=== PATIENT | female | born 1980 | race Caucasian/White ===

== ENCOUNTER → 2018-01-07 11:32 | Outpatient (REF) | payer OTHER, MEDICAID, SELFPAY ==
[2018-01-07 21:09] LABS: Abs Immature Grans 0.03 k/cumm (0.0-0.09); Absolute Basophil Count 0.02 k/cumm (0.0-0.2); Absolute Eosinophil Count 0.17 k/cumm (0.0-0.7); Absolute Lymphocyte Count 2.76 k/cumm (1.2-3.4); Absolute Monocyte Count 0.66 k/cumm (0.11-0.7); Absolute Neutrophil Count 6.97 k/cumm (1.2-6.7); Basophils % 0.2; Eosinophils % 1.6; HCT 37.3 % (36.0-46.0); HGB 12.3 g/dL (12.0-15.5); Immature Grans % 0.3; Mean Corpuscular Hemoglobin 28.9 pg (27.0-33.0); Mean Corpuscular Volume 87.6 fL (80-95); Mean Platelet Volume 11.9 fL (8.0-11.0); Monocytes % 6.2; Neutrophils % 65.7; Platelet Count 189 x1000/uL (130-400); RBC 4.26 m/cumm (4.00-5.20); RBC Distribution Width 15.7 % (11.7-14.6); White Blood Cell Count 10.61 k/cumm (4.4-10.8)
[2018-01-07 21:16] LABS: ALT 27 U/L (12-78); AST 20 U/L (15-37); Albumin 3.5 g/dL (3.4-5.0); Alkaline Phosphatase 52 U/L (46-116); Anion Gap 8.6 mmol/L (3-11); BUN 8 mg/dL (7-18); Bilirubin, Total 0.2 mg/dL (0.2-1.0); CO2 29.4 mmol/L (21.0-32.0); CREATININE 0.96 mg/dL (0.55-1.02); Calcium 8.5 mg/dL (8.5-10.1); Chloride 103 mmol/L (98-107); Cholesterol 134 mg/dL (50-200); Glucose 85 mg/dL (70-100); HDL Cholesterol 29 mg/dL (40-60); LDL CHOLESTEROL 75 mg/dL (<100); Potassium 4.6 mmol/L (3.5-5.1); Sodium 141 mmol/L (136-145); TSH (W/Ref FT4) 1.49 uIU/mL (0.358-3.74); Triglyceride 243 mg/dL (30-150)
== END ==
LOC: NCHCN 11:32
PROVIDERS: PCP Family Medicine; Visit Provider Specialist/Technologist Athletic Trainer
DX: Z51.81 Encounter for therapeutic drug level monitoring (principal); Z79.899 Other long term (current) drug therapy; F31.9 Bipolar disorder, unspecified
CPT/HCPCS: 80053; 80061; 83721; 84443; 85025

== ENCOUNTER 2018-08-06 13:14 | Outpatient (REF) | payer OTHER, SELFPAY ==
[2018-08-06 22:28] LABS: ALT 23 U/L (12-78); AST 17 U/L (15-37); Albumin 3.7 g/dL (3.4-5.0); Alkaline Phosphatase 49 U/L (46-116); Anion Gap 9.4 mmol/L (3-11); BUN 10 mg/dL (7-18); Bilirubin, Total 0.3 mg/dL (0.2-1.0); C-Reactive Protein 1.13 mg/dL (0.0-0.3); CO2 27.6 mmol/L (21.0-32.0); CREATININE 0.95 mg/dL (0.55-1.02); Chloride 100 mmol/L (98-107); Glucose 109 mg/dL (70-100); Potassium 4.4 mmol/L (3.5-5.1); Sodium 137 mmol/L (136-145); Total Protein 7.2 g/dL (6.4-8.2)
[2018-08-06 22:57] LABS: ESR 30 MM/HR (0-20)
[2018-08-08 12:33] LABS: Myeloperoxidase Ab IgG <0.2 U; Proteinase 3 Ab (PR3) <0.2 U
[2018-08-10 09:42] LABS: Rheumatoid Factor <8 IU/mL (<12.5)
[2018-08-10 10:21] LABS: Cyclic Citrullinated Peptide <2.5 U/mL (<5.0)
[2018-08-10 11:07] LABS: Anaplasma phagocytophilum Negative (Negative); B. miyamotoi PCR Negative (Negative); Babesia divergens/MO-1 Negative (Negative); Babesia duncani Negative (Negative); Babesia microti Negative (Negative); Ehrlichia chaffeensis Negative (Negative); Ehrlichia ewingii/canis Negative (Negative); Ehrlichia muris eauclairensis Negative (Negative)
[2018-08-10 12:31] LABS: Lyme Ab w Rflx to Lyme Confirm Negative
[2018-08-10 14:36] LABS: ANA Interpretation Negative (NEGAT)
== END 2018-08-06 13:34 ==
LOC: NCHCN 13:14
PROVIDERS: PCP Family Medicine; Visit Provider Specialist/Technologist Athletic Trainer
DX: M25.50 Pain in unspecified joint (principal); R60.9 Edema, unspecified; Z02.89 Encounter for other administrative examinations
CPT/HCPCS: 80053; 85652; 86200; 83516; 83735; 86038; 86140; 86431; 86618; 87798

== ENCOUNTER 2018-10-01 08:17 | Emergency (ER) | payer OTHER, MEDICAID, SELFPAY ==
[2018-10-01 08:30] VITALS: BP 146/79; PULSE 92; RESP 18; TEMP 37.1; O2SAT 94
--- NOTE | 2018-10-01 08:45 | ED.GENADUL_ITS ---
Discharge Plan Disposition Patient Disposition: HOME Condition: Good Discharge Details Chief Complaint: RashLesion Clinical Impression: Tick bite of chest wall Primary Care Provider: Diane Ying V ED Provider: Neel Gary Home Meds and New Rx's Prescriptions: No Action furosemide 20 MG tablet 20 mg PO DAILY RF: 0 albuterol sulfate [ProAir HFA] 8.5 GM HFA aerosol inhaler 2 puff Inhalation BID RF: 0 paroxetine HCl [Paxil] 20 MG tablet 20 mg PO HS RF: 0 quetiapine 25 MG tablet 25 mg PO TID RF: 0 buprenorphine-naloxone [Suboxone] 1 EACH film 1 ea PO DAILY RF: 0 potassium chloride 10 MEQ capsule, extended release 10 meq PO DAILY RF: 0 calcium carbonate 600 MG tablet 600 mg PO DAILY RF: 0 omeprazole 40 MG capsule,delayed release(DR/EC) 40 mg PO DAILY AM Qty: 30 RF: 3 Discharge Instructions Instructions: Tick Bite (ED) Additional Instructions: Please follow-up with your primary care provider or return to emergency department for any new or significant worsening of symptoms, development of rash, or further concerns he may have. Referrals: Diane Ying MD [Primary Care Provider] - (As needed for reassessment) Discharge Data Discharge Date/Time-TO BE ENTERED AT DEPARTURE: 10/01/18 09:12 Medical Decision Making Patient presenting the emergency department for chief complaint of tick bite. Patient states that she feels that she may have gotten this from her cat that sleeps in her bed. She states that more than likely it is been there more than 2 days and that she attempted to call her primary care provider for examination but was unable to be seen so is presenting the emergency department. Patient is afebrile, denies any other rashes, denies any joint swelling or other symptoms. Patient does have what appears to be embedded deer tick into the right chest wall. There is a small surrounding ecchymosis otherwise no erythema margins other rash or other symptoms noted and benign exam otherwise. Tick was removed with splinter tweezers and appears to have no further visible remaining embedded pieces after removal. Given that this is a deer tick and it does have the appearance of being attached for a significant amount of time patient was given single dose of doxycycline 200 mg as prophylactic treatment for Lyme disease and discussion of further symptoms was given to patient along with follow-up instructions. After discussion of diagnosis and plan of care patient has no further needs, questions, or concerns and states clear understanding to return to the emergency department for any worsening symptoms. HPI General Mode of arrival: ambulatory . Date/Time Provider Initiated Documentation: 10/01/18 08:29 . Limitations to Documentation: no limitations . Information obtained by: patient and RN notes reviewed . History of Present Illness 38 year old F presents to the emergency department with the chief complaint of tick bite, described as mild, with intensity rated at 1. Quality is described as aching, Patient started experiencing this day(s) (2+) and it has been constant. Patient notes no other symptoms.. Patient did receive the following treatments prior to arrival, none Related Data Home Medications Medication Instructions Recorded Confirmed albuterol sulfate [ProAir HFA] 2 puff INHALATION BID 10/13/12 02/22/17 paroxetine HCl [Paxil] 20 mg PO HS 10/13/12 02/22/17 quetiapine 25 mg PO TID 01/15/13 02/22/17 buprenorphine-naloxone [Suboxone 1 ea PO DAILY 11/03/13 02/22/17 12 Mg-3 Mg Sl Film] furosemide 20 mg PO DAILY 01/30/16 02/22/17 calcium carbonate 600 mg PO DAILY 09/20/16 02/22/17 potassium chloride 10 meq PO DAILY 09/20/16 02/22/17 omeprazole 40 mg PO DAILY AM #30 capsule. 09/24/16 02/22/17 Previous Rx's Medication Instructions Recorded omeprazole 40 mg PO DAILY AM #30 capsule. 09/24/16 Allergies Allergy/AdvReac Type Severity Reaction Status Date / Time sertraline HCl [From Zoloft] AdvReac Severe Psychosis Unverified 10/02/18 10:16 fluticasone AdvReac Mild mouth Unverified 10/02/18 10:16 [From Advair Diskus] infection salmeterol AdvReac Mild mouth Unverified 10/02/18 10:16 [From Advair Diskus] infection sertraline [From Zoloft] AdvReac Suicidal Unverified 10/02/18 10:16 ideation General Stated Complaint: RashLesion MACRINA: 4 Review of Systems Constitutional Denies body ache(s), Denies chills and Denies fever(s) Cardiovascular Denies chest pain and Denies dyspnea Respiratory Denies dyspnea Gastrointestinal Denies abdominal pain, Denies nausea and Denies vomiting Musculoskeletal Denies joint swelling Integumentary/Breasts Reports as per HPI and Denies rash PFSH Medical History Asthma Bipolar disorder Depression Drug dependence GERD (gastroesophageal reflux disease) OCD (obsessive compulsive disorder) DELROY (obstructive sleep apnea) Surgical History section Cholecystectomy Diagnostic Laproscopy EGD - MAC (09/24/16) Shoulder Surgery Family History Mother Personal history of malignant neoplasm Father Diabetes Personal history of malignant neoplasm Social History Smoking/Tobacco Use Status: Current every day Alcohol Intake: never Drug use: Occasionally Substance use type: marijuana Do you feel safe at home: Yes Do you feel safe in your relationship?: Yes Exam Const General: cooperative, no acute distress and not ill appearing Orientation: alert, awake and oriented x3 Resp Effort & Inspection: normal respiratory effort, able to speak in complete sentences and no respiratory distress Skin General skin exam: other (Embedded tick right chest wall small ecchymosis surrounding) Rashes: no rashes Neuro General: alert, awake and oriented x3 Course Vital Signs Temperature 37.1 C 10/01/18 08:30 Pulse 92 H 10/01/18 08:30 Respiratory Rate 18 10/01/18 08:30 Blood Pressure 146/79 H 10/01/18 08:30 Pulse Oximetry 94 L 10/01/18 08:30 Temperature 37.1 C 10/01/18 08:30 Temperature Source Temporal Artery Scan 10/01/18 08:30 Pulse 92 H 10/01/18 08:30 Respiratory Rate 18 10/01/18 08:30 Respiratory Effort Non-Labored 10/01/18 08:35 Blood Pressure 146/79 H 10/01/18 08:30 Pulse Oximetry 94 L 10/01/18 08:30 Oxygen Delivery Method Room Air 10/01/18 08:30 Oxygen Flow Rate 0 10/01/18 08:30 Pain Level 1 10/01/18 08:30
[2018-10-01] MEDS: Doxycycline Hyclate 100 MG CAP 200 MG PO (08:49)
== END 2018-10-01 09:12 | disposition home or self-care (01) ==
PROVIDERS: Emergency Provider Nurse Practitioner Family; PCP Family Medicine
DX: S20.361A Insect bite (nonvenomous) of right front wall of thorax, initial encounter (principal); W57.XXXA Bitten or stung by nonvenomous insect and other nonvenomous arthropods, initial encounter
CPT/HCPCS: 99283

== ENCOUNTER 2018-12-07 02:29 | Outpatient (CLI) | payer OTHER, MEDICAID, SELFPAY ==
--- NOTE | 2018-12-07 14:30 | PFT_ITS ---
DATE OF SERVICE: December 07, 2018 REQUESTING PROVIDER: Amber Esparza NP INTERPRETATION OF STUDY: Spirometry shows mild obstructive airways disease. No bronchodilator testing was carried out. LUNG VOLUMES: Show no evidence of restriction. DIFFUSION CAPACITY: Normal. AIRWAYS RESISTANCE: Elevated. IMPRESSION: Mild obstructive airways disease. No bronchodilator testing was carried out. Airways resistance is elevated. Clinical correlation recommended. BRONCHOPROVOCATION CHALLENGE TEST DATE OF SERVICE: December 07, 2018 After spirometry showing mild obstructive airways disease, bronchoprovocation challenge with methacholine was carried out with good patient effort. At a methacholine concentration of 0.5 mg/mL, the patient had a 24% drop in FEV1. IMPRESSION: Strongly positive methacholine challenge test. Clinical correlation recommended. ADDENDUM: The patient has significant bronchodilator response at 14% improvement with bronchodilators. cc: Amber Esparza NP
[2018-12-07] MEDS: Inhaler, Assist Device 1 EACH MC (16:12)
[2018-12-07] MEDS: Methacholine 100 MG VIAL IH (16:12)
[2018-12-07] MEDS: Albuterol HFA 18 GM 200 PUFF INH IH (16:32)
== END 2018-12-07 02:49 ==
PROVIDERS: PCP Family Medicine; Visit Provider Nurse Practitioner Family
DX: J45.20 Mild intermittent asthma, uncomplicated (principal); R06.02 Shortness of breath; F17.200 Nicotine dependence, unspecified, uncomplicated
CPT/HCPCS: 94060; 94150; 94726; 94729; 95070; 94010; J7674

== ENCOUNTER 2019-12-02 21:44 | Emergency (ER) | payer OTHER, MEDICAID, SELFPAY ==
[2019-12-02 21:47] VITALS: BP 165/89; PULSE 105; RESP 16; TEMP 36.7; O2SAT 98
--- NOTE | 2019-12-02 21:47 | ED.GENADUL_ITS ---
Discharge Plan Disposition Patient Disposition: HOME Condition: Good Discharge Details Chief Complaint: EarProblem Clinical Impression: Otitis media, Paresthesias Primary Care Provider: Diane Ying V ED Provider: Alverto Garcia Tasley Meds and New Rx's Prescriptions: New amoxicillin-pot clavulanate 875-125 mg tablet 1 tab PO BID Qty: 20 RF: 0 Continued furosemide 20 MG tablet 20 mg PO DAILY RF: 0 albuterol sulfate [ProAir HFA] 8.5 GM HFA aerosol inhaler 2 puff Inhalation BID RF: 0 paroxetine HCl [Paxil] 20 MG tablet 40 mg PO HS RF: 0 buprenorphine-naloxone [Suboxone] 1 EACH film 1 ea PO DAILY RF: 0 potassium chloride 10 MEQ capsule, extended release 10 meq PO DAILY RF: 0 omeprazole 40 MG capsule,delayed release(DR/EC) 40 mg PO DAILY AM Qty: 30 RF: 3 Serevent Diskus 50 mcg/dose Blister With Device 1 inh INHALATION BID RF: 0 celecoxib [Celebrex] 100 mg Capsule 100 mg PO BID RF: 0 cholecalciferol (vitamin D3) [Vitamin D3] 25 mcg (1,000 unit) Capsule 1,000 unit PO DAILY RF: 0 magnesium oxide 400 mg magnesium Capsule 400 mg PO DAILY RF: 0 Discharge Instructions Instructions: Ear Infection (ED) Additional Instructions: You have a right ear infection and we will place you on Augmentin. You may hold your celecoxib for now. Alternate acetaminophen with ibuprofen to help control your ear pain. Follow-up with primary care next week for recheck. If symptoms resolved completely then probably no further work-up. If continued numbness and tingling with other intermittent episodes of blurry vision and dizziness despite infection being better may need outpatient MRI. Return to ED if you develop significantly worsening neurologic symptoms, confusion, pain. Referrals: Diane Ying MD [Primary Care Provider] - Medical Decision Making Not sure what to make of patient's complaints. The right ear has cerumen impaction and may be unrelated to her headache, visual changes, sensation of imbalance, right side subjective sensory changes. There is nothing that I can definitively say is abnormal on neurological examination. She seems to have difficulty with the right eye in the temporal visual advid but it is inconsistent. She has sensation on the right side of her body but reports it being decreased and abnormal compared to left. Headache is right sided frontal- temporal area. Will place IV and check basic labs. Will give fluids and Compazine in case of atypical migraine. Consider MS in young female with funny neurologic complaints/findings. Will have nursing irrigate right ear so can obtain visualization of the TM. 23:55 - Patient reports feeling better. Laboratory studies unremarkable other than elevated white count. CT head negative for any acute intracranial findings. After cerumen removed by irrigation, patient is noted to have significant TM erythema, opacity, bulging. Since her neurologic stuff is more subjective and not objectively consistent, I think it is reasonable to treat with Augmentin for her otitis and have her follow-up with primary care next week. If infection resolves but she continues to have neurologic complaints consider outpatient MRI to evaluate for MS. Return to ED if acute neurologic changes, confusion, worsening pain. Lab Data Lab results reviewed: Yes I reviewed the patient's lab results. HPI General Mode of arrival: ambulatory . Date/Time Provider Initiated Documentation: 12/02/19 21:47 . Limitations to Documentation: no limitations . Information obtained by: patient, RN notes reviewed and old records reviewed . HPI Narrative: Patient presents to ED with complaint of right headache and earache. Patient reports to me that both started about 5 days ago and have been getting progressively worse. She now has left ear discomfort but more itching in the canal for anything. She has decreased hearing in the right ear. She states 2 days ago she developed numbness/tingling in the right side of her face. She feels like her vision is not normal on and off and she is off balance on and off as well. Symptoms seem to be progressing which is what concerned her and she came in for evaluation. She has not had symptoms like this previously. She has not had headaches like this previously. It is right temporal and frontal but radiates to the back. She denies any falls or recent trauma. She has some sinus pressure which seems to be unrelated to the headache. She has nausea but no vomiting. She has no cough, fever, chest pain or shortness of breath. She has no abdominal pain. Related Data Home Medications Medication Instructions Recorded Confirmed albuterol sulfate [ProAir HFA] 2 puff INHALATION BID 10/13/12 12/02/19 paroxetine HCl [Paxil] 40 mg PO HS 10/13/12 12/02/19 buprenorphine-naloxone [Suboxone] 1 ea PO DAILY 11/03/13 12/02/19 furosemide 20 mg PO DAILY 01/30/16 12/02/19 potassium chloride 10 meq PO DAILY 09/20/16 12/02/19 omeprazole 40 mg PO DAILY AM #30 capsule. 09/24/16 12/02/19 Serevent Diskus 1 inh INHALATION BID 12/02/19 12/02/19 amoxicillin-pot clavulanate 1 tab PO BID #20 tab 12/02/19 celecoxib [Celebrex] 100 mg PO BID 12/02/19 12/02/19 cholecalciferol (vitamin D3) 1,000 unit PO DAILY 12/02/19 12/02/19 [Vitamin D3] magnesium oxide 400 mg PO DAILY 12/02/19 12/02/19 Previous Rx's Medication Instructions Recorded omeprazole 40 mg PO DAILY AM #30 capsule. 09/24/16 amoxicillin-pot clavulanate 1 tab PO BID #20 tab 12/02/19 Allergies Allergy/AdvReac Type Severity Reaction Status Date / Time sertraline HCl [From Zoloft] AdvReac Severe Psychosis Unverified 10/02/18 10:16 fluticasone AdvReac Mild mouth Unverified 10/02/18 10:16 [From Advair Diskus] infection salmeterol AdvReac Mild mouth Unverified 10/02/18 10:16 [From Advair Diskus] infection sertraline [From Zoloft] AdvReac Suicidal Unverified 10/02/18 10:16 ideation General MACRINA: 4 Review of Systems Narrative: 03/08 Review of Systems completed and is negative except as stated above in HPI (Systems reviewed: Const, Eyes, ENT, Resp, CV, GI, , MSK, Skin, Neuro) FORMERLY [facility], [facility] Medical History Asthma Bipolar disorder Depression Drug dependence GERD (gastroesophageal reflux disease) OCD (obsessive compulsive disorder) DELROY (obstructive sleep apnea) Surgical History section Cholecystectomy Diagnostic Laproscopy EGD - MAC (09/24/16) Shoulder Surgery Social History Smoking/Tobacco Use Status: Current every day Alcohol Intake: never Drug use: Occasionally Substance use type: marijuana Do you feel safe at home: Yes Do you feel safe in your relationship?: Yes Exam Narrative Exam Narrative: Vitals: Afebrile. Elevated blood pressure and mild tachycardia. Normal room air pulse oximetry. Const: Morbidly obese female in NAD. HEENT: NC/AT. Normal facial exam. No sinus tenderness. Right ear with cerumen impaction. Left ear with external canal erythema and mild edema. Left TM normal. Eyes: Normal conjunctiva and sclera. PERRL and EOMI. No nystagmus. Neck: Supple. Trachea midline. Lungs: Normal respiratory effort. Cor: Good radial pulses. GI: Soft. NT/ND. No guarding or rebound. Neuro: A+O x 3. Normal speech, mentation, gait. Cranial nerves II - XII grossly intact but subjective decreased sensation right face. Visual david appear intact though questionable right eye temporal hemianopia. Normal motor. Subjective decreased sensation involving right side of the body. [id number] normal. Ext: No C/C/E. Skin: Warm and dry without rash.
[2019-12-02 22:32] LABS: Abs Immature Grans 0.03 k/cumm (0.0-0.09); Absolute Lymphocyte Count 4.18 k/cumm (1.2-3.4); Absolute Monocyte Count 0.98 k/cumm (0.11-0.7); Basophils % 0.3; Eosinophils % 1.5; HCT 39.4 % (36.0-46.0); HGB 13.6 g/dL (12.0-15.5); Immature Grans % 0.2 %; Lymphocytes % 27.6; Mean Corp. HGB Concentration 34.5 g/dL (32.0-36.0); Mean Corpuscular Hemoglobin 30.3 pg (27.0-33.0); Mean Corpuscular Volume 87.8 fL (80-95); Mean Platelet Volume 9.8 fL (8.0-11.0); Monocytes % 6.5; Neutrophils % 63.9; Platelet Count 353 x1000/uL (130-400); RBC 4.49 m/cumm (4.00-5.20); RBC Distribution Width 14.1 % (11.7-14.6); White Blood Cell Count 15.14 k/cumm (4.4-10.8)
--- NOTE | 2019-12-02 22:36 | DI.CT_ITS ---
EXAM: CT HEAD WO CLINICAL HISTORY: right side headache; right side numbness. TECHNIQUE: Imaging Protocol: Axial computed tomography images with coronal and sagittal reformatted images were created and reviewed COMPARISON: No exams were available for comparison FINDINGS: Ventricles and Extra axial spaces: Normal in size and morphology for the patient's age. Hemorrhage: None. Cerebral parenchyma: Normal. Midline shift: None. Brainstem/Cerebellum: Normal. Calvarium: Normal. Visualized Paranasal sinuses/Mastoids: Clear. Soft Tissues: Cerumen in the right external auditory canal. IMPRESSION: No acute intracranial process. RADIATION DOSE DELIVERED: 738.38mGy.cm Total DLP DATA REPOSITORY: All CT scans at this facility are submitted to the National Radiology Data Registry (NRDR) Dose Index Registry (DIR) with the [employer] ([employer]). RADIATION OPTIMIZATION: All CT scans at this facility use at least one of these dose optimization te chniques: automated exposure control; mA and/or kV adjustment per patient size (includes targeted exa ms where dose is matched to clinical indication); or iterative reconstruction.
[2019-12-02 22:38] LABS: Absolute Basophil Count 0.05 k/cumm (0.0-0.2); Absolute Eosinophil Count 0.23 k/cumm (0.0-0.7); Absolute Neutrophil Count 9.67 k/cumm (1.2-6.7)
[2019-12-02] MEDS: Prochlorperazine 10 MG/2 ML VIAL 5 MG IVP (22:39)
[2019-12-02] MEDS: Normal Saline Flush 10 ML SYR IVP (22:39)
[2019-12-02] MEDS: Lactated Ringers 1,000 ML 1000 ML IV (22:39)
[2019-12-02 22:47] LABS: ALT 23 U/L (14-59); AST 15 U/L (15-37); Albumin 3.9 g/dL (3.4-5.0); Alkaline Phosphatase 57 U/L (46-116); Anion Gap 7.6 mmol/L (3-11); BUN 17 mg/dL (7-18); Bilirubin, Total 0.2 mg/dL (0.2-1.0); CO2 29.4 mmol/L (21.0-32.0); CREATININE 0.97 mg/dL (0.55-1.02); Calcium 8.4 mg/dL (8.5-10.1); Chloride 101 mmol/L (98-107); Glucose 83 mg/dL (74-106); Potassium 3.8 mmol/L (3.5-5.1); Sodium 138 mmol/L (136-145); Total Protein 7.8 g/dL (6.4-8.2)
--- NOTE | 2019-12-02 22:47 | DI.VRAD_ITS ---
PROCEDURE INFORMATION: Exam: CT Head Without Contrast Exam date and time: 12/02/2019 10:34 PM Age: 39 years old Clinical indication: Pain; Headache not specified; Patient HX: [id number], alexis visual changes, blurry vision, loss of balance TECHNIQUE: Imaging protocol: Computed tomography of the head without contrast. Radiation optimization: All CT scans at this facility use at least one of these dose optimization techniques: automated exposure control; mA and/or kV adjustment per patient size (includes targeted exams where dose is matched to clinical indication); or iterative reconstruction. COMPARISON: No relevant prior studies available. FINDINGS: Brain: Normal. No hemorrhage. Unremarkable white matter. No mass effect. Ventricles: Normal. No ventriculomegaly. Bones/joints: Unremarkable. No acute fracture. Sinuses: Visualized sinuses are unremarkable. No fluid levels. Mastoid air cells: Visualized mastoid air cells are well aerated. Auditory system: Right external auditory canal partially occluded with cerumen. No abnormal soft tissue densities in middle ear cavities. Soft tissues: Unremarkable. IMPRESSION: No acute intracranial abnormality. Dictated and Authenticated by: Kiran Yosuif MD. Ordering:BRUNA Del Toro MD
[2019-12-02] MEDS: Amoxicillin 875/Clav. 125 TAB PO (23:53)
[2019-12-02 23:59] VITALS: BP 121/71; PULSE 75; RESP 16; TEMP 36.6; O2SAT 98
== END 2019-12-03 00:05 | disposition home or self-care (01) ==
PROVIDERS: Emergency Provider Emergency Medicine; PCP Family Medicine
DX: H66.91 Otitis media, unspecified, right ear (principal); R51 Headache; R20.2 Paresthesia of skin; R11.0 Nausea
CPT/HCPCS: 36415; 69209; 80053; 81025; 96361; 96374; 99284; 70450; 85025; 99285; J0780

== ENCOUNTER 2020-02-07 17:16 | Emergency (ER) | payer OTHER, MEDICAID, SELFPAY ==
[2020-02-07 17:20] VITALS: BP 139/81; PULSE 109; RESP 18; TEMP 37.4; O2SAT 95
--- NOTE | 2020-02-07 17:26 | ED.GENADUL_ITS ---
Discharge Plan Disposition Patient Disposition: HOME Condition: Fair Discharge Details Clinical Impression: Otitis externa Primary Care Provider: Diane Ying V ED Provider: Ginger Perez Home Meds and New Rx's Prescriptions: New ciprofloxacin HCl 500 mg tablet 500 mg PO BID Qty: 20 RF: 0 Continued furosemide 20 MG tablet 20 mg PO DAILY RF: 0 albuterol sulfate [ProAir HFA] 8.5 GM HFA aerosol inhaler 2 puff Inhalation BID RF: 0 paroxetine HCl [Paxil] 20 MG tablet 40 mg PO HS RF: 0 buprenorphine-naloxone [Suboxone] 1 EACH film 6 ea PO DAILY RF: 0 potassium chloride 10 MEQ capsule, extended release 10 meq PO DAILY RF: 0 omeprazole 40 MG capsule,delayed release(DR/EC) 40 mg PO DAILY AM Qty: 30 RF: 3 Serevent Diskus 50 mcg/dose Blister With Device 1 inh INHALATION BID RF: 0 celecoxib [Celebrex] 100 mg Capsule 100 mg PO BID RF: 0 cholecalciferol (vitamin D3) [Vitamin D3] 25 mcg (1,000 unit) Capsule 1,000 unit PO DAILY RF: 0 magnesium oxide 400 mg magnesium Capsule 400 mg PO DAILY RF: 0 acetaminophen [Tylenol] 325 mg Tablet 1,000 mg PO PRN PRNRF: 0 ibuprofen 200 mg Tablet 200 mg PO PRN PRNRF: 0 Discharge Instructions Instructions: Otitis Externa (ED) Additional Instructions: As discussed, I am concerned that your infection may have spread and did recommend imaging to look for this. However, at this time refused to stay for imaging is of concern for cost and time. I would like you to follow-up quickly tomorrow with your primary care for reassessment and discuss this further. You may return anytime to have this imaging completed if you change your mind. Evidence of outer ear infection. Please take the oral ciprofloxacin as prescribed. Resuscitative medication as discussed. Please encourage water intake. Please stop smoking. If you develop fever/chills, increased pain, headache, visual changes or other new/worsening symptoms to seek care urgently once again Referrals: Diane Ying MD [Primary Care Provider] - Discharge Data Discharge Date/Time-TO BE ENTERED AT DEPARTURE: 02/07/20 18:15 Medical Decision Making Patient is a pleasant 39-year-old female presented with chief complaint of left ear pain and white discharge states this began this morning. Reports fever with a T-max of 99.6?F. States that that was when she first woke up this morning, has been afebrile since then. She reports that she was recently here for otitis media on the contralateral side for which she received treatment. States that she has been swimming recently. Denies any recent travel. Denies any cough. Indicates that she is having pain anteriorly near the TMJ as well as posteriorly over the mastoid. Denies any headache, visual change, confusion. On exam, patient is tearing and appears uncomfortable. She is holding the left ear. On exam, she does have thick white purulent discharge in the left ear canal. Tender diffusely. Pain over the left mastoid. I see no erythema, warmth, swelling. Patient appears nontoxic. No nuchal rigidity. I advised imaging based on the severity of pain and that patient has tenderness over the mastoid. She is refusing imaging or labs. She states that last time she was here her insurance did not cover this and she still has a large unpaid bill. She is aware of my concerns with the areas of pain. We discussed risks in depth. She is aware that she may return at any time for reevaluation or continued work up. She will return immediately if she develops new/worsening sytmpoms. As her pain is so great and there is concern for local spread, will treat with PO Ciprofloxacin. She and I discussed risks associated with this medication. I advised that she should f/u with PCP tomorrow. All of her questions and concerns were addressed, she is in agreement with this plan. [facility] General Mode of arrival: ambulatory . Date/Time Provider Initiated Documentation: 02/07/20 17:26 . Limitations to Documentation: no limitations . Information obtained by: patient and RN notes reviewed . History of Present Illness 39 year old F presents to the emergency department with the chief complaint of left ear pain, described as severe, with intensity rated at 10. Quality is described as stabbing, and is localized to the face (ear). Patient denies radiation (radiates around ear both anterior and posteriorly). Patient started experiencing this hour(s) (this AM) and it has been constant. No relieving factors improve symptom(s), No exacerbating factors reported . Patient notes fever/chills (states T max 99.6 this AM, none throughout the day); denies confusion, chest pain, diaphoresis, headaches, loss of appetite, nausea/vomiting, rash and weakness. Patient did receive the following treatments prior to arrival, none Related Data Home Medications Medication Instructions Recorded Confirmed albuterol sulfate [ProAir HFA] 2 puff INHALATION BID 10/13/12 02/07/20 paroxetine HCl [Paxil] 40 mg PO HS 10/13/12 02/07/20 buprenorphine-naloxone [Suboxone] 6 ea PO DAILY 11/03/13 02/07/20 furosemide 20 mg PO DAILY 01/30/16 02/07/20 potassium chloride 10 meq PO DAILY 09/20/16 02/07/20 omeprazole 40 mg PO DAILY AM #30 capsule. 09/24/16 02/07/20 Serevent Diskus 1 inh INHALATION BID 12/02/19 02/07/20 celecoxib [Celebrex] 100 mg PO BID 12/02/19 02/07/20 cholecalciferol (vitamin D3) 1,000 unit PO DAILY 12/02/19 02/07/20 [Vitamin D3] magnesium oxide 400 mg PO DAILY 12/02/19 02/07/20 acetaminophen [Tylenol] 1,000 mg PO PRN PRN 02/07/20 02/07/20 ciprofloxacin HCl 500 mg PO BID #20 tab 02/07/20 ibuprofen 200 mg PO PRN PRN 02/07/20 02/07/20 Previous Rx's Medication Instructions Recorded omeprazole 40 mg PO DAILY AM #30 capsule. 09/24/16 ciprofloxacin HCl 500 mg PO BID #20 tab 02/07/20 Allergies Allergy/AdvReac Type Severity Reaction Status Date / Time sertraline HCl [From Zoloft] AdvReac Severe Psychosis Unverified 02/07/20 17:26 fluticasone AdvReac Mild mouth Unverified 02/07/20 17:26 [From Advair Diskus] infection salmeterol AdvReac Mild mouth Unverified 02/07/20 17:26 [From Advair Diskus] infection sertraline [From Zoloft] AdvReac Suicidal Unverified 02/07/20 17:26 ideation General Stated Complaint: EarProblem MACRINA: 3 Review of Systems Constitutional Constitutional: Reports as per HPI, Denies chills, Reports fever(s) (T max 99.6) and Denies headache(s) Eyes Eyes: Reports as per HPI, Denies eye discharge and Denies irritation ENT Ears, Nose, Mouth, and Throat: Reports as per HPI and Denies headache(s) Cardiovascular Cardiovascular: Reports as per HPI, Denies chest pain and Denies dyspnea Respiratory Respiratory: Reports as per HPI and Denies dyspnea Gastrointestinal Gastrointestinal: Reports as per HPI, Denies abdominal pain, Denies change in bowel habits, Denies nausea and Denies vomiting Integumentary/Breasts Skin/Breast: Reports as per HPI and Denies rash Neurologic Neurologic: Reports as per HPI and Denies headache(s) [facility] Medical History (Updated 02/07/20 @ 18:10 by DAVIN Salas) Asthma Bipolar disorder Depression Drug dependence GERD (gastroesophageal reflux disease) OCD (obsessive compulsive disorder) DELROY (obstructive sleep apnea) Surgical History section Cholecystectomy Diagnostic Laproscopy EGD - MAC (09/24/16) Shoulder Surgery Family History Mother Personal history of malignant neoplasm Ovarian cancer Father Diabetes Personal history of malignant neoplasm Prostate cancer Social History Smoking/Tobacco Use Status: Current every day Alcohol Intake: never Drug use: Occasionally Substance use type: marijuana Do you feel safe at home: Yes Do you feel safe in your relationship?: Yes Exam Const General: cooperative, healthy appearing, uncomfortable (patient is tearing and holding left ear), no acute distress, well developed and well groomed Nutritional Appearance: average body habitus and well nourished Orientation: alert and awake [facility] Head: normal to inspection, normocephalic and atraumatic Ears: hearing grossly normal bilaterally, external ears abnormal, TM normal on the right, left TM abnormal (unable to visualize. Thick white discharge in external canal), mastoids normal on the right, no periauricular adenopathy, hearing grossly not impaired and mastoid abnormal (left is tender) General nose exam: external nose normal and nares normal Face and sinus: normal facial exam, sinuses nontender and face symmetric Mouth: oral mucosae normal, lip normal, tongue normal, oropharynx normal and moist mucous membranes Teeth and gingiva: dentition normal Throat: posterior oropharynx normal, tonsils normal and uvula midline Eyes General: appearance normal, both eyes and all related structures Neck Neck: normal visual inspection, full ROM, no lymphadenopathy and no meningeal signs Resp Effort & Inspection: normal respiratory effort, able to speak in complete sentences and no respiratory distress Auscultation: clear to auscultation bilaterally, no rales, no rhonchi and no wheezes Cardio Rate: regular rate Rhythm: regular rhythm Heart Sounds: S1 normal and S2 normal Skin General skin exam: no rashes or lesions noted Neuro General: patient alert and patient awake Cognition: normal cognition Speech: speech normal Gait: normal gait Psych Appearance: grossly normal and well kempt Mental Status: mental status grossly normal Speech and Movement: speech and movement normal Course Vital Signs Vital signs: Vital Signs Temperature 37.4 C 02/07/20 17:20 Pulse 109 H 02/07/20 17:20 Respiratory Rate 18 02/07/20 17:20 Blood Pressure 139/81 02/07/20 17:20 Pulse Oximetry 95 02/07/20 17:20 Temperature 37.4 C 02/07/20 17:20 Temperature Source Temporal Artery Scan 02/07/20 17:20 Pulse 109 H 02/07/20 17:20 Respiratory Rate 18 02/07/20 17:20 Blood Pressure 139/81 02/07/20 17:20 Blood Pressure Position Sitting 02/07/20 17:20 Pulse Oximetry 95 02/07/20 17:20 Oxygen Delivery Method Room Air 02/07/20 17:20 Oxygen Flow Rate 0 02/07/20 17:20 Pain Level 10 02/07/20 17:20
[2020-02-07 18:16] VITALS: TEMP 37.2
--- NOTE | 2020-02-07 18:22 | NUR.NOTE ---
Nursing Note: Referral faxed to PCP for follow up tomorrow.Angela Hernandez
== END 2020-02-07 18:15 | disposition home or self-care (01) ==
PROVIDERS: Emergency Provider Physician Assistant; PCP Family Medicine
DX: H92.12 Otorrhea, left ear (principal); H60.502 Unspecified acute noninfective otitis externa, left ear
CPT/HCPCS: 99283

== ENCOUNTER 2020-04-11 15:00 | Outpatient (REF) | payer OTHER, MEDICAID, SELFPAY ==
[2020-04-11 19:41] LABS: ALT 22 U/L (14-59); AST 14 U/L (15-37); Albumin 3.7 g/dL (3.4-5.0); Alkaline Phosphatase 64 U/L (46-116); Anion Gap 5.8 mmol/L (3-11); BUN 10 mg/dL (7-18); Bilirubin, Total 0.4 mg/dL (0.2-1.0); CO2 30.2 mmol/L (21.0-32.0); CREATININE 0.93 mg/dL (0.55-1.02); Calcium 8.9 mg/dL (8.5-10.1); Chloride 102 mmol/L (98-107); Glucose 85 mg/dL (74-106); NT-proBNP 40 pg/mL (<300); Potassium 4.4 mmol/L (3.5-5.1); Sodium 138 mmol/L (136-145); Total Protein 7.3 g/dL (6.4-8.2)
== END 2020-04-11 15:20 ==
LOC: NCHCN 15:00
PROVIDERS: PCP Family Medicine; Visit Provider Nurse Practitioner Family
DX: R60.9 Edema, unspecified (principal); R06.02 Shortness of breath
CPT/HCPCS: 80048; 80076; 83880

== ENCOUNTER 2020-05-04 03:29 | Outpatient (CLI) | payer OTHER, SELFPAY ==
--- NOTE | 2020-05-04 10:30 | DI.US_ITS ---
APPROVED REPORT EXAM: Comprehensive 2D, Doppler, and color-flow Echocardiogram Patient Location: Out-Patient Signals Collector/Analyst: Carley Hoyt RDCS (AE) Indications: Peripheral edema, New cough Other Information Study Quality: Fair. Technically limited study due to body habitus. Conclusion Left Ventricle : The left ventricle is normal size. The left ventricular systolic function is normal. The left ventricular ejection fraction is within the normal range. There is normal left ventricular wall thickness. There is normal LV segmental wall motion. The left ventricular diastolic function is normal. LVEF is 50-55%. Right Ventricle : The right ventricle is normal size. The right ventricular systolic function is norm al. The RVSP is 23.9 mmHg. Atria : The left atrium size is normal. The right atrium size is normal. Mitral Valve : The mitral valve is normal in structure. Mild mitral regurgitation. No evidence of tomazs ral valve stenosis. Great Vessels : The aortic root is normal in size. The ascending aorta is normal in size. Aortic arch is normal in caliber. IVC is normal in size and collapses >50% with inspiration. Please see remainder of study for further details. Wall motion Left Ventricle The left ventricle is normal size. The left ventricular systolic function is normal. The left ventric ular ejection fraction is within the normal range. There is normal left ventricular wall thickness. T here is normal LV segmental wall motion. The left ventricular diastolic function is normal. There is no ventricular septal defect visualized. LVEF is 50-55%. Right Ventricle The right ventricle is normal size. The right ventricular systolic function is normal. The RVSP is 23 .9 mmHg. Atria The left atrium size is normal. The right atrium size is normal. The interatrial septum is intact wit h no evidence for an atrial septal defect. Aortic Valve The aortic valve is normal in structure. Aortic valve is trileaflet. There is no aortic valvular sten osis. No aortic regurgitation is present. Mitral Valve The mitral valve is normal in structure. No evidence of mitral valve stenosis. Mild mitral regurgitat ion. Tricuspid Valve The tricuspid valve is normal in structure. There is no tricuspid valve stenosis. Trace to mild tricu spid regurgitation. Pulmonic Valve Pulmonic valve is not well visualized. There is no pulmonic valvular stenosis. There is no pulmonic v alvular regurgitation. Great Vessels The aortic root is normal in size. The ascending aorta is normal in size. Aortic arch is normal in ca liber. IVC is normal in size and collapses >50% with inspiration. Pericardium There is no pericardial effusion. 2D Dimensions IVSD d PLAX 0.84 cm F: 0.6-1.0 LV Vol A2C d MOD 96.8 mL LVPW d PLAX 0.91 cm F: 0.6 - 1.0 LV Vol A4C d MOD 131.8 mL LVID d PLAX 5.08 cm F: 3.8 - 5.2 LA vol/ BSA A2C s A-L 27.2 mL/m2 LVDs 3.45 cm F: 2.2 - 3.5 LA vol/ BSA A4C s A-L 36.3 mL/m2 Ao Root d 2.68 cm F: 2.7 - 3.3 LA Vol/ BSA Biplane s A-L 33.7 mL/m2 RA Area A4C 15.24 cm2 LA Area A4C s MOD 22.35 cm2 RA Vol/ BSA A4C s A-L 19.7 mL/m2 LA Area A2C s MOD 18.08 cm2 Ao Asc Diam d 3.18 cm F: 2.3 - 3.1 LV EF A4C MOD 51.7 % LV EF Teichholz 59.2 % LV EF A2C MOD 55.7 % LVEF (Groves's) 53.87 % F: 54 - 74 LV EF Biplane MOD 53.9 % LV Volume 84.90 mL F: 46 - 106 SV 61.93 mL LV Volume Index 40.62 mL/m2 F: 29 - 61 SV Index 29.54 mL/m2 LV Vol Biplane MOD 115.0 mL FS 31.55 % M-Mode TAPSE 2.55 cm (M/F) >1.7 LV Diastology MV E' medial 0.108 (>0.07 m/s) E/A Ratio 1.2 LV E/e MED 8.60 (<14) MV E Vmax 0.93 (0.4-1.3 m/s) MV E' lateral 0.126 (>0.1 m/s) MV A Vmax 0.75 (0.4-1.3 m/s) LV E/e LAT 7.35 (<14) MV E/A Ratio 1.20 MV E/E' medial 8.63 MV E/E' lateral 7.37 Aortic Valve LVOT Area 3.27 cm2 AoV Area Vmax 3.02 cm2 LVOT Vmax 1.35 m/s AoV Area/ BSA (Vmax) 1.44 cm2/m2 LVOT Mean Sriram. 0.80 m/s AKOSUA Mean Sriram. 2.72 cm2 LVOT Peak Grad 7.3 mmHg AKOSUA Mean Sriram. Index 1.30 cm2/m2 LVOT Mean Grad 3.1 mmHg LVOT VTI 0.244 m LVOT Diam s 2.00 cm AoV Vmax 1.46 m/s Velocity Ratio 0.92 AoV Mean Sriram. 0.96 m/s AoV Peak Grad 8.5 mmHg LVOT SV 79.59 mL AoV Mean Grad 4.2 mmHg AoV VTI 0.291 m AoV Area VTI 2.74 cm2 AoV Area/ BSA (VTI) 1.31 cm/m2 Mitral Valve MV DT 203 (160-240 msec) MV PHT 59 msec MV Area PHT 3.74 cm2 MV VTI 0.250 m MV Area VTI 3.18 (4.0-6.0 cm2) Pulmonary Valve PV Vmax 1.08 (0.5-1.5 m/s) RVOT Peak Gr. 2.52 mmHg PV Peak Grad 4.7 mmHg RVOT Mean Gr. 1.30 mmHg PV Mean Grad 2.4 mmHg RVOT VTI 0.169 m PV VTI 0.219 m RVOT Vmax 0.79 m/s Tricuspid Valve TR Peak Grad 20.9 mmHg TR Vmax 2.29 m/s RA Pressure 3.00 mmHg RVSP (TR) 23.9 mmHg
== END 2020-05-04 03:49 ==
PROVIDERS: PCP Family Medicine; Visit Provider Nurse Practitioner Family
DX: I34.0 Nonrheumatic mitral (valve) insufficiency (principal)
CPT/HCPCS: 93306

== ENCOUNTER 2020-06-08 15:10 | Emergency (ER) | payer OTHER, SELFPAY ==
[2020-06-08] VITALS (19 sets, daily range): BP systolic 151–167; BP diastolic 77–92; PULSE 72–98; RESP 12–22; TEMP 37; O2SAT 92–99
--- NOTE | 2020-06-08 15:15 | RT.EKG_ITS ---
APPROVED REPORT Exam: Resting ECG Patient Location: E HR:82 bpm ECG Measurements Heart Rate 82 AXIS ME 172 P 40 QRSd 82 QRS 35 QT 356 T 51 QTc 416 Conclusion Sinus rhythm...normal P axis, V-rate 60- 99
--- NOTE | 2020-06-08 15:22 | W.ED.GENAD ---
Discharge Plan Disposition Patient Disposition: HOME Condition: Good Discharge Details Clinical Impression: Bronchitis Primary Care Provider: Diane Ying V ED Provider: Vivian Leblanc Home Meds and New Rx's Prescriptions: New prednisone 20 mg tablet 60 mg PO DAILY 5 Days Qty: 15 RF: 0 Continued furosemide 20 MG tablet 20 mg PO DAILY RF: 0 paroxetine HCl [Paxil] 20 MG tablet 40 mg PO HS RF: 0 buprenorphine-naloxone [Suboxone] 1 EACH film 6 ea PO DAILY RF: 0 potassium chloride 10 MEQ capsule, extended release 10 meq PO DAILY RF: 0 omeprazole 40 MG capsule,delayed release(DR/EC) 40 mg PO DAILY AM Qty: 30 RF: 3 Serevent Diskus 50 mcg/dose Blister With Device 1 inh INHALATION BID RF: 0 celecoxib [Celebrex] 100 mg Capsule 100 mg PO BID RF: 0 cholecalciferol (vitamin D3) [Vitamin D3] 25 mcg (1,000 unit) Capsule 1,000 unit PO DAILY RF: 0 magnesium oxide 400 mg magnesium Capsule 400 mg PO DAILY RF: 0 acetaminophen [Tylenol] 325 mg Tablet 1,000 mg PO PRN PRNRF: 0 ibuprofen 200 mg Tablet 200 mg PO PRN PRNRF: 0 ciprofloxacin HCl 500 mg tablet 500 mg PO BID Qty: 20 RF: 0 Discontinued albuterol sulfate [ProAir HFA] 8.5 GM HFA aerosol inhaler 2 puff Inhalation BID RF: 0 Discharge Instructions Instructions: Acute Bronchitis (ED) Additional Instructions: Tylenol as needed for discomfort, 650 mg every 4-6 hours Increase hydration to help clear your mucus, have at least eight 8 ounce glasses of water daily Mucinex Take prednisone until completed, you will not need your next dose until tomorrow Independent to prescribe additional antibiotics but I do not see evidence of acute bacterial infection, I do recommend you see your primary care physician in the next 24 to 48 hours and return immediately should you have new or worsening complaints At this time I recommend discontinuing the albuterol and using the Combivent as prescribed Medical Decision Making Patient is alert, oriented, no suspicious opacity, quite pleasant She is in mild respiratory distress, after Combivent and Decadron intravenously, she is symptomatically improved Her ambulatory status for 2 minutes is 92%, her lungs are clear to auscultation She feels comfortable being discharged home She discharged home on prednisone and Combivent which she feels helps more than her albuterol, she is instructed to discontinue her albuterol Her chest x-ray did not show acute pathology per radiology interpretation of my review Her EKG does not show acute abnormality Troponin and diagnostic labs are negative for acute pathology We did order Covid screen, this is pending Patient was made aware regarding pending Covid test plan and need for isolation Recheck in 24 to 48 hours recommending Psychosocial for pulmonary embolism patient is PERC negative, troponin negative EKG negative, and low risk patient, I suspect pain is related to coughing and bronchitis symptoms COVID-19 pending Return precautions discussed and patient expressed understanding Differential Diagnosis Differential Diagnosis: Pulmonary embolism, bronchitis, angina, COVID-19 Medical Records Medical records reviewed: Yes I reviewed the patient's medical records. Lab Data Lab results reviewed: Yes I reviewed the patient's lab results. ECG Data Prior ECG tracings: available for review HPI 40-year-old female presents with 12-day history of myalgia, cough, with progressively worsening shortness of breath and chest pain patient reports pain in her chest only with coughing and deep breath. Denies known fever. Denies any calf pain or swelling, recent 5, surgeries, care home care, history of exogenous hormones. Denies prior history of pulmonary embolism. Reports symptoms started with upper respiratory congestion. Have persistent peripheral edema. She denies any new symptoms related to this orthopnea. She states her symptoms are exacerbated with exertion. She has never been admitted in the hospital. She has a current smoker. She does these daily inhaled steroid and rescue inhaler. She did use her rescue inhaler prior to arrival. She denies chance of . Denies any history of surgeries. Denies nausea or vomiting. Denies any chest pain and breathing or cough. Daughter is reportedly sick with similar symptoms. General Date/Time Provider Initiated Documentation: 06/08/20 15:11. Related Data Home Medications Medication Instructions Recorded Confirmed paroxetine HCl [Paxil] 40 mg PO HS 10/13/12 02/07/20 buprenorphine-naloxone [Suboxone] 6 ea PO DAILY 11/03/13 02/07/20 furosemide 20 mg PO DAILY 01/30/16 02/07/20 potassium chloride 10 meq PO DAILY 09/20/16 02/07/20 omeprazole 40 mg PO DAILY AM #30 capsule. 09/24/16 02/07/20 Serevent Diskus 1 inh INHALATION BID 12/02/19 02/07/20 celecoxib [Celebrex] 100 mg PO BID 12/02/19 02/07/20 cholecalciferol (vitamin D3) 1,000 unit PO DAILY 12/02/19 02/07/20 [Vitamin D3] magnesium oxide 400 mg PO DAILY 12/02/19 02/07/20 acetaminophen [Tylenol] 1,000 mg PO PRN PRN 02/07/20 02/07/20 ciprofloxacin HCl 500 mg PO BID #20 tab 02/07/20 ibuprofen 200 mg PO PRN PRN 02/07/20 02/07/20 prednisone 60 mg PO DAILY 5 Days #15 tab 06/08/20 Previous Rx's Medication Instructions Recorded omeprazole 40 mg PO DAILY AM #30 capsule. 09/24/16 ciprofloxacin HCl 500 mg PO BID #20 tab 02/07/20 prednisone 60 mg PO DAILY 5 Days #15 tab 06/08/20 Allergies Allergy/AdvReac Type Severity Reaction Status Date / Time sertraline HCl [From Zoloft] AdvReac Severe Psychosis Unverified 06/08/20 15:22 fluticasone AdvReac Mild mouth Unverified 06/08/20 15:22 [From Advair Diskus] infection salmeterol AdvReac Mild mouth Unverified 06/08/20 15:22 [From Advair Diskus] infection sertraline [From Zoloft] AdvReac Suicidal Unverified 06/08/20 15:22 ideation General Stated Complaint: RespSymp MACRINA: 2 Review of Systems Narrative: Review of systems negative x 7 except for chest pain, fatigue, shortness of breath, headache All systems reviewed & are unremarkable except as noted in HPI and below Constitutional Constitutional: Reports body ache(s), Reports chills and Reports headache(s) ENT Ears, Nose, Mouth, and Throat: Reports headache(s) Neurologic Neurologic: Reports headache(s) [facility] Medical History (Updated 06/08/20 @ 17:20 by DAVIN Barrera) Asthma Bipolar disorder Depression Drug dependence GERD (gastroesophageal reflux disease) OCD (obsessive compulsive disorder) DELROY (obstructive sleep apnea) Surgical History section Cholecystectomy Diagnostic Laproscopy EGD - MAC (09/24/16) Shoulder Surgery Family History Mother Personal history of malignant neoplasm Ovarian cancer Father Diabetes Personal history of malignant neoplasm Prostate cancer Social History Smoking/Tobacco Use Status: Current every day Smoking risk assessment performed?: Yes Alcohol Intake: never Drug use: Occasionally Substance use type: marijuana Do you feel safe at home: Yes Do you feel safe in your relationship?: Yes Exam Narrative Exam Narrative: Constitutional, alert and well developed HEENT: Mucosa edema and congestion, oropharynx patent, uvula midline Neck; no JVD, Chest: Mild tenderness anteriorly Respiratory; initially in mild respiratory distress, scant scattered wheezes and diminished lung sounds Cardiac: Rate rhythm regular, no murmurs or rubs, distal pulses intact GI: No abdominal bruit or pulsatile mass, abdomen nontender Neuro: Alert and oriented Extremities: No peripheral edema Const General: cooperative and well developed Orientation: oriented x3 Course Vital Signs Vital signs: Vital Signs Temperature 37.0 C 06/08/20 15:15 Pulse 98 H 06/08/20 15:15 Respiratory Rate 22 06/08/20 15:15 Blood Pressure 165/92 H 06/08/20 15:15 Pulse Oximetry 97 06/08/20 15:15 Temperature 37.0 C 06/08/20 15:15 Pulse 98 H 06/08/20 15:15 Respiratory Rate 22 06/08/20 15:15 Blood Pressure 165/92 H 06/08/20 15:15 Blood Pressure Position Supine 06/08/20 15:15 Pulse Oximetry 97 06/08/20 15:15 Oxygen Delivery Method Room Air 06/08/20 15:15 Oxygen Flow Rate 0 06/08/20 15:15 Pain Level 3 06/08/20 15:15
--- NOTE | 2020-06-08 15:30 | DI.RAD_ITS ---
EXAM: XR PORTABLE CHEST AP CLINICAL HISTORY: cough, fever. TECHNIQUE: 2D digital imaging was performed. COMPARISON: No exams were available for comparison FINDINGS: Heart size is normal. The mediastinum is not widened. Lungs are clear. No infiltrates nor obvious pleural effusions. IMPRESSION: No acute pulmonary findings on this single AP portable view of the chest. DATA REPOSITORY: RADIATION DOSE DELIVERED:
--- NOTE | 2020-06-08 15:53 | ED.GENADUL_ITS ---
Discharge Plan Discharge Details Chief Complaint: RespSymp Primary Care Provider: Diane Ying V ED Provider: Vivian Leblanc Home Meds and New Rx's Prescriptions: No Action furosemide 20 MG tablet 20 mg PO DAILY RF: 0 albuterol sulfate [ProAir HFA] 8.5 GM HFA aerosol inhaler 2 puff Inhalation BID RF: 0 paroxetine HCl [Paxil] 20 MG tablet 40 mg PO HS RF: 0 buprenorphine-naloxone [Suboxone] 1 EACH film 6 ea PO DAILY RF: 0 potassium chloride 10 MEQ capsule, extended release 10 meq PO DAILY RF: 0 omeprazole 40 MG capsule,delayed release(DR/EC) 40 mg PO DAILY AM Qty: 30 RF: 3 Serevent Diskus 50 mcg/dose Blister With Device 1 inh INHALATION BID RF: 0 celecoxib [Celebrex] 100 mg Capsule 100 mg PO BID RF: 0 cholecalciferol (vitamin D3) [Vitamin D3] 25 mcg (1,000 unit) Capsule 1,000 unit PO DAILY RF: 0 magnesium oxide 400 mg magnesium Capsule 400 mg PO DAILY RF: 0 acetaminophen [Tylenol] 325 mg Tablet 1,000 mg PO PRN PRNRF: 0 ibuprofen 200 mg Tablet 200 mg PO PRN PRNRF: 0 ciprofloxacin HCl 500 mg tablet 500 mg PO BID Qty: 20 RF: 0 HPI This 40-year-old female presents with history of shortness of breath, cough, wheezing, and chest pain with breathing and cough. She states that her symptoms started 12 days ago daughter similar symptoms although she has resolved. She felt intermittent headaches and myalgias. She denies any new calf pain or swelling or orthopnea. She denies any headache today. She states that she had progressively worsening shortness of breath and with her history of asthma, precipitated her arrival. She did take albuterol inhaler treatment just prior to arrival which helped her symptoms mildly, doubly with wheezing. She denies any history of recent flights, surgeries, long drives, coagulopathy. She denies any exogenous hormone use. She denies any history of intravenous drug abuse, she is on file. Opiate oral abuse. She denies any weight gain. Her symptoms are also exacerbated with coughing. She denies any known Covid exposure or recent foreign travel or national travel. She has finished her course of antibiotic she took approximately 7 days ago for a reported abscess in her ear. She has continued this medication. She denies any nausea or vomiting. She denies vision change. She denies fever today. Did not take antipyretics prior to arrival reportedly.+ General Date/Time Provider Initiated Documentation: 06/08/20 15:11 . Related Data Home Medications Medication Instructions Recorded Confirmed albuterol sulfate [ProAir HFA] 2 puff INHALATION BID 10/13/12 02/07/20 paroxetine HCl [Paxil] 40 mg PO HS 10/13/12 02/07/20 buprenorphine-naloxone [Suboxone] 6 ea PO DAILY 11/03/13 02/07/20 furosemide 20 mg PO DAILY 01/30/16 02/07/20 potassium chloride 10 meq PO DAILY 09/20/16 02/07/20 omeprazole 40 mg PO DAILY AM #30 capsule. 09/24/16 02/07/20 Serevent Diskus 1 inh INHALATION BID 12/02/19 02/07/20 celecoxib [Celebrex] 100 mg PO BID 12/02/19 02/07/20 cholecalciferol (vitamin D3) 1,000 unit PO DAILY 12/02/19 02/07/20 [Vitamin D3] magnesium oxide 400 mg PO DAILY 12/02/19 02/07/20 acetaminophen [Tylenol] 1,000 mg PO PRN PRN 02/07/20 02/07/20 ciprofloxacin HCl 500 mg PO BID #20 tab 02/07/20 ibuprofen 200 mg PO PRN PRN 02/07/20 02/07/20 Previous Rx's Medication Instructions Recorded omeprazole 40 mg PO DAILY AM #30 capsule. 09/24/16 ciprofloxacin HCl 500 mg PO BID #20 tab 02/07/20 Allergies Allergy/AdvReac Type Severity Reaction Status Date / Time sertraline HCl [From Zoloft] AdvReac Severe Psychosis Unverified 06/08/20 15:22 fluticasone AdvReac Mild mouth Unverified 06/08/20 15:22 [From Advair Diskus] infection salmeterol AdvReac Mild mouth Unverified 06/08/20 15:22 [From Advair Diskus] infection sertraline [From Zoloft] AdvReac Suicidal Unverified 06/08/20 15:22 ideation General Stated Complaint: RespSymp MACRINA: 2 [facility] Medical History Asthma Bipolar disorder Depression Drug dependence GERD (gastroesophageal reflux disease) OCD (obsessive compulsive disorder) DELROY (obstructive sleep apnea) Surgical History section Cholecystectomy Diagnostic Laproscopy EGD - MAC (09/24/16) Shoulder Surgery Family History Mother Personal history of malignant neoplasm Ovarian cancer Father Diabetes Personal history of malignant neoplasm Prostate cancer Social History Smoking/Tobacco Use Status: Current every day Smoking risk assessment performed?: Yes Alcohol Intake: never Drug use: Occasionally Substance use type: marijuana Do you feel safe at home: Yes Do you feel safe in your relationship?: Yes Exam Resp Effort & Inspection: able to speak in complete sentences and retractions Auscultation: diminished lung sounds Cardio Rate: regular rate Rhythm: regular rhythm Neuro General: patient alert and patient oriented x3 Course Vital Signs Vital signs: Vital Signs Temperature 37.0 C 06/08/20 15:15 Pulse 98 H 06/08/20 15:15 Respiratory Rate 22 06/08/20 15:15 Blood Pressure 165/92 H 06/08/20 15:15 Pulse Oximetry 97 06/08/20 15:15 Temperature 37.0 C 06/08/20 15:15 Pulse 83 06/08/20 15:21 Respiratory Rate 22 06/08/20 15:15 Respiratory Effort 06/08/20 15:41 Respiratory Depth Normal 06/08/20 15:41 Blood Pressure 165/92 H 06/08/20 15:21 Blood Pressure Mean 110 06/08/20 15:21 Blood Pressure Position Supine 06/08/20 15:15 Pulse Oximetry 95 06/08/20 15:21 Oxygen Delivery Method Room Air 06/08/20 15:15 Oxygen Flow Rate 0 06/08/20 15:15 Pain Level 3 06/08/20 15:15
[2020-06-08] MEDS: Ipratropium/Albuterol 4 GM 120 PUFF INH IH (16:01)
[2020-06-08] MEDS: Dexamethasone 10 MG/ML VIAL IVP (16:02)
[2020-06-08] MEDS: Acetaminophen 325 MG TAB 650 MG PO (16:03)
[2020-06-08 16:25] LABS: MCH 29.3 pg (27.0-33.0); MCHC 33.3 % (32.0-36.0); MCV 87.8 fL (80-95); MPV 10.8 fL (8.0-11.0); Platelet Count 316 10^3/uL (130-400); RDW 13.9 % (11.7-14.6); RDW-SD 44.6 fL; WBC 11.33 10^3/uL (4.4-10.8)
--- NOTE | 2020-06-08 16:33 | DI.VRAD_ITS ---
PROCEDURE INFORMATION: Exam: XR Chest, 1 View Exam date and time: 06/08/2020 4:20 PM Age: 40 years old Clinical indication: Shortness of breath TECHNIQUE: Imaging protocol: XR of the chest Views: 1 view. COMPARISON: No relevant prior studies available. FINDINGS: Lungs: The lungs are normally expanded and clear. Pleural space: Normal. Heart/Mediastinum: Normal heart and cardiomediastinal silhouette. Vasculature: Normal pulmonary vessel caliber. Normal aorta. Bones/joints: The bones are intact. IMPRESSION: No acute disease or suspicious finding. Dictated and Authenticated by: Malvin Peña MD. Ordering:SHANON Park MD
[2020-06-08 16:34] LABS: ALT 34 U/L (14-59); AST 19 U/L (15-37); Albumin 3.6 g/dL (3.4-5.0); Alkaline Phosphatase 60 U/L (46-116); Anion Gap 7.5 mmol/L (3-11); BUN 11 mg/dL (7-18); Bilirubin, Total 0.4 mg/dL (0.2-1.0); CO2 28.5 mmol/L (21.0-32.0); CREATININE 0.83 mg/dL (0.55-1.02); Calcium 8.7 mg/dL (8.5-10.1); Chloride 103 mmol/L (98-107); Glucose 103 mg/dL (74-106); NT-proBNP 32 pg/mL (<300); Potassium 3.8 mmol/L (3.5-5.1); Sodium 139 mmol/L (136-145); Total Protein 7.5 g/dL (6.4-8.2)
[2020-06-08 16:35] LABS: Troponin I < 0.05 ng/mL (<0.06)
[2020-06-09 21:38] LABS: COVID-19 RT-PCR UVMMC Result Negative (Negative)
== END 2020-06-08 17:36 | disposition home or self-care (01) ==
PROVIDERS: Emergency Provider Physician Assistant; PCP Family Medicine
DX: J20.8 Acute bronchitis due to other specified organisms (principal); M79.10 Myalgia, unspecified site; F17.210 Nicotine dependence, cigarettes, uncomplicated; Z79.51 Long term (current) use of inhaled steroids; Z03.818 Encounter for observation for suspected exposure to other biological agents ruled out
CPT/HCPCS: 36415; 80053; 85027; 93005; 96374; 99284; U0003; 71045; 83880; 84484; 93010; J1100; J3490

== ENCOUNTER → 2020-10-24 01:36 | Outpatient (CLI) | payer OTHER, SELFPAY ==
--- NOTE | 2020-10-24 10:18 | DI.RAD_ITS ---
Exam(s) XR HIP LT COMPLETE AP PELVIS EXAM: XR HIP LT COMPLETE AP PELVIS CLINICAL HISTORY: LT HIP PAIN, M25.552, ? OA, WORSENING PAIN TECHNIQUE: COMPARISON: No exams were available for comparison FINDINGS: Three views were obtained. There is loss of height of the intervertebral disc space of what appears to be L4-5 with prominent endplate hypertrophic changes. There are slight degenerative changes of th e SI joints bilaterally. The cartilaginous joint spaces of both hips appear fairly well maintained. No significant bony abnormality seen involving the hips. IMPRESSION: No significant abnormality of the hips, degenerative changes noted at the L4-5 level of the lumbar sp ine. RADIATION DOSE DELIVERED: Total DLP
== END ==
PROVIDERS: PCP Family Medicine; Visit Provider Nurse Practitioner Family
DX: M25.552 Pain in left hip (principal); M53.3 Sacrococcygeal disorders, not elsewhere classified
CPT/HCPCS: 73502

== ENCOUNTER 2021-12-12 14:11 | Outpatient (REF) | payer MEDICARE, MEDICAID, SELFPAY ==
--- NOTE | 2021-12-12 14:30 | PAPFT_PTH ---
PATIENT: Rina Arzate LOC: [facility]#:[id number] AGE/SX: 41/F ROOM: RE12/12/[address]: Amber Esparza : 1980 BED: DIS: 12/12/2021 SPEC #: [id number] RECD: 12/13/21 12:49 STATUS: PATEL REDonna #: [id number] MATY: 12/12/21 14:[address]: Amber Esparza DEPT: [facility] Cytology RECD BY: Vivian Mariano ENTERED: 12/13/21 12:49 SP TYPE: PAPFT OTHR DR: Diane Ying V Tissues: 1 - CX/ENDOCX FOR PAP SMEARS Procedures: PAP THIN PREP/UVM Screening HPV DNA PROBE Comments: [id number]
[2021-12-12 20:09] LABS: HCT 40.1 % (36.0-46.0); HGB 13.1 g/dL (11.2-15.7); MCH 29.8 pg (27.0-33.0); MCHC 32.7 % (32.0-36.0); MCV 91 fL (80-95); Platelet Count 162 10^3/uL (130-400); RDW 14.1 % (11.7-14.6); RDW-SD 47.6 fL; WBC 13.78 10^3/uL (4.4-10.8)
[2021-12-12 20:32] LABS: BUN 9 mg/dL (7-18); CREATININE 0.9 mg/dL (0.55-1.02); Calcium 8.8 mg/dL (8.5-10.1); Calculated LDL 84 mg/dL (<100); Chloride 102 mmol/L (98-107); Cholesterol 143 mg/dL (<200); Glucose 100 mg/dL (74-106); HDL Cholesterol 41 mg/dL (40-60); Potassium 4.2 mmol/L (3.5-5.1); Sodium 139 mmol/L (136-145); TSH (W/Ref FT4) 1.49 uIU/mL (0.36-3.74); Triglyceride 91 mg/dL (<150)
[2021-12-12 20:57] LABS: Ferritin 32 ng/mL (8-252)
[2021-12-14 14:56] LABS: Chlamydia Result Negative (Negative); GC Result Negative (Negative)
== END 2021-12-12 14:12 | disposition home or self-care (01) ==
LOC: NCHCN 14:11
PROVIDERS: PCP Family Medicine; Visit Provider Nurse Practitioner Family
DX: E78.1 Pure hyperglyceridemia (principal); N92.0 Excessive and frequent menstruation with regular cycle; F32.9 Major depressive disorder, single episode, unspecified; Z01.419 Encounter for gynecological examination (general) (routine) without abnormal findings; R73.03 Prediabetes
CPT/HCPCS: 80048; 80061; 85027; 87491; 87591; 88142; 82728; 84443; 87480; 87510; 87624; 87660

== ENCOUNTER 2021-12-12 15:00 | Outpatient (REF) | payer MEDICARE, MEDICAID, SELFPAY | END 2021-12-12 15:01 | disposition home or self-care (01) | LOC: LBN 15:00 | PROVIDERS: PCP Family Medicine; Visit Provider Nurse Practitioner Family ==

== ENCOUNTER → 2022-01-24 03:48 | Outpatient (CLI) | payer MEDICARE, MEDICAID, SELFPAY ==
--- NOTE | 2022-01-24 | DI.US_ITS ---
Exam(s) US PELVIS TRANSVAGINAL EXAM: US PELVIS TRANSVAGINAL CLINICAL HISTORY: MENORRHAGIA N92.0 TECHNIQUE: Ultrasound of the pelvis was performed both transabdominal and transvaginal. COMPARISON: CT RENAL COLIC WO CONTRAST from 06/12/2009 FINDINGS: UTERUS: Anteverted Measures 7.4 cm length x 3.3 cm AP x 5.2 cm wide. There are no obvious discernible uterine fibroids. Endometrial thickness measures 5.4 mm. Hyperechoic foci within the endometrial canal, possibly small polyp versus calcification. Is no fluid in the endometrial. CERVIX: There are multiple nabothian cyst in the cervix, these measuring less than 1 cm. RIGHT OVARY: Measures 6 x 6.4 x 7.6 cm cm Multiple cystic structures ranging up to 5.5 cm diameter. One of these contains both septation and a hypoechoic multi-cystic mural mass therein, measuring 3.3 x 2.2 cm. LEFT OVARY: Left ovary was not able to be identified.. CUL-DE-SAC: No free fluid evident. IMPRESSION: 1. Multiple abnormal cystic structures in the enlarged right ovary, these measuring up to 5.5 cm size . One of these contains both septations and partially cystic-partially is solid mural mass. Close fol low-up recommended rule out neoplasm. 2. The opposite-left ovary was not seen. 3. No obvious uterine fibroids. Hyperechoic 4-5 millimeter focus within the endometrium, possibly yelena yp versus calcification or within a subtle not easily visible subserosal fibroid. DATA REPOSITORY:
== END ==
PROVIDERS: PCP Family Medicine; Visit Provider Nurse Practitioner Family
DX: N92.0 Excessive and frequent menstruation with regular cycle (principal); N83.291 Other ovarian cyst, right side; N88.8 Other specified noninflammatory disorders of cervix uteri; N83.8 Other noninflammatory disorders of ovary, fallopian tube and broad ligament
CPT/HCPCS: 76830; 76856

== ENCOUNTER 2022-05-25 09:51 | Emergency (ER) | payer MEDICARE, MEDICAID, SELFPAY ==
[2022-05-25 10:17] VITALS: BP 119/87; PULSE 83; RESP 18; TEMP 36.8; O2SAT 94
--- NOTE | 2022-05-25 10:44 | ED.GENADUL_ITS ---
Discharge Plan Disposition Patient Disposition: Home Condition: Good Discharge Details Clinical Impression: Pharyngitis Primary Care Provider: Diane Ying V ED Provider: Ginger Perez Home Meds and New Rx's Prescriptions: Continued levonorgestrel-ethinyl estrad 0.1-20 mg-mcg tablet 1 tab PO DAILY Qty: 84 4RF furosemide 20 MG tablet 20 mg PO DAILY paroxetine HCl [Paxil] 20 MG tablet 40 mg PO HS buprenorphine-naloxone [Suboxone] 1 EACH film 6 ea PO DAILY Label Comments: 03/07/17 States taking 4mg/tapering off potassium chloride 10 MEQ capsule, extended release 10 meq PO DAILY omeprazole 40 MG capsule,delayed release(DR/EC) 40 mg PO DAILY AM Qty: 30 3RF Serevent Diskus 50 mcg/dose Blister With Device 1 inh INHALATION BID celecoxib [Celebrex] 100 mg Capsule 100 mg PO BID cholecalciferol (vitamin D3) [Vitamin D3] 25 mcg (1,000 unit) Capsule 1,000 unit PO DAILY magnesium oxide 400 mg magnesium Capsule 400 mg PO DAILY acetaminophen [Tylenol] 325 mg Tablet 1,000 mg PO PRN PRN ibuprofen 200 mg Tablet 200 mg PO PRN PRN ciprofloxacin HCl 500 mg tablet 500 mg PO BID Qty: 20 0RF Discharge Instructions Instructions: Pharyngitis (ED) Additional Instructions: As we discussed, you are negative for COVID, flu and strep today. This may be associated with other virus. Please encourage hydration. Tylenol and ibuprofen as needed for discomfort. Please follow-up with primary care in 1 to 2 weeks. Please continue to monitor results of people you have been in contact with to see if any of their results may help determine the underlying cause of your current symptoms. If you develop difficulty breathing, shortness of breath, inability stay hydrated or other new/worsening symptom please seek care urgently once again. Referrals: Diane Ying MD [Primary Care Provider] - Discharge Data Discharge Date/Time-TO BE ENTERED AT DEPARTURE: 05/25/22 12:20 Medical Decision Making Patient is a pleasant 42-year-old female, accompanied by son, with chief complaint of sore throat. She reports a sore throat began about 2 days ago. Denies other URI symptoms. Denies any fevers or chills. Son is here with similar symptoms although his began prior to hers. They do share drinks. Of note, sons history and exam is certainly concerning for STI. They are in the room together and are very open about this discussion and are concerned that he may have given this to his mother as they are not reduce your beverages frequently. Patient denies any history of lesions in her throat, STIs. No recent sexual partners. On exam, patient appears nontoxic. Exam of posterior oropharynx significant for erythema. However, no significant lesions are appreciated at this time. No lymphadenopathy. Lungs are clear. We discussed testing. She is negative for flu, COVID and strep. However, based on the exam of her child who she shares drinks with, I am concerned for potential STI. She does not have any active lesions currently, I am concerned that testing for her may be falsely negative. She would rather hold off on testing, see what comes back from her son's testing and follow-up with her primary care. Alternatively, she may be suffering from viral illness that was not tested for COVID today. We discussed supportive measures. We discussed return precautions. All of her questions and concerns were addressed and she is in agreement this plan. HPI General Date/Time Provider Initiated Documentation: 05/25/22 10:44 . Limitations to Documentation: no limitations . Information obtained by: patient and RN notes reviewed . History of Present Illness 42 year old F presents to the emergency department with the chief complaint of sore throat, described as moderate, with intensity rated at 5. Quality is described as burning, and is localized to the mouth. Patient reports no radiation. Patient started experiencing this day(s) (2) and it has been constant. No relieving factors improve symptom(s), No exacerbating factors reported . Patient notes no other symptoms.. Patient did receive the following treatments prior to arrival, none Related Data Home Medications Medication Instructions Recorded Confirmed paroxetine HCl 20 mg tablet (Paxil) 40 mg PO HS 10/13/12 01/09/22 buprenorphine 12 mg-naloxone 3 mg 6 ea PO DAILY 11/03/13 01/09/22 sublingual film (Suboxone) furosemide 20 mg tablet 20 mg PO DAILY 01/30/16 01/09/22 potassium chloride 10 mEq 10 meq PO DAILY 09/20/16 01/09/22 capsule,extended release omeprazole 40 mg capsule,delayed 40 mg PO DAILY AM ##30 09/24/16 01/09/22 release celecoxib 100 mg capsule (Celebrex) 100 mg PO BID 12/02/19 01/09/22 cholecalciferol (vitamin D3) 25 1,000 unit PO DAILY 12/02/19 01/09/22 mcg (1,000 unit) capsule (Vitamin D3) magnesium oxide 400 mg PO DAILY 12/02/19 01/09/22 salmeterol 50 mcg/dose blister 1 inh inhalation BID 12/02/19 01/09/22 powder for inhalation (Serevent Diskus) acetaminophen 325 mg tablet 1,000 mg PO PRN PRN 02/07/20 01/09/22 (Tylenol) ciprofloxacin HCl 500 mg tablet 500 mg PO BID #20 tabs 02/07/20 01/09/22 ibuprofen 200 mg tablet 200 mg PO PRN PRN 02/07/20 01/09/22 levonorgestrel-ethinyl estradiol 1 tab PO DAILY #84 tabs 01/09/22 01/09/22 0.1 mg-20 mcg tablet Previous Rx's Medication Instructions Recorded omeprazole 40 mg capsule,delayed 40 mg PO DAILY AM ##30 09/24/16 release ciprofloxacin HCl 500 mg tablet 500 mg PO BID #20 tabs 02/07/20 levonorgestrel-ethinyl estradiol 1 tab PO DAILY #84 tabs 01/09/22 0.1 mg-20 mcg tablet Allergies Allergy/AdvReac Type Severity Reaction Status Date / Time sertraline HCl [From Zoloft] AdvReac Severe Psychosis Unverified 05/25/22 10:19 fluticasone AdvReac Mild mouth Unverified 05/25/22 10:19 [From Advair Diskus] infection salmeterol AdvReac Mild mouth Unverified 05/25/22 10:19 [From Advair Diskus] infection sertraline [From Zoloft] AdvReac Suicidal Unverified 05/25/22 10:19 ideation General Stated Complaint: Sorethroat MACRINA: 4 Review of Systems Constitutional Constitutional: Reports as per HPI and Denies headache(s) Eyes Eyes: Reports as per HPI, Denies eye discharge and Denies irritation ENT Ears, Nose, Mouth, and Throat: Reports as per HPI and Denies headache(s) Cardiovascular Cardiovascular: Reports as per HPI, Denies chest pain and Denies dyspnea Respiratory Respiratory: Reports as per HPI and Denies dyspnea Gastrointestinal Gastrointestinal: Reports as per HPI, Denies abdominal pain, Denies change in bowel habits, Denies nausea and Denies vomiting Integumentary/Breasts Skin/Breast: Reports as per HPI and Denies rash Neurologic Neurologic: Reports as per HPI and Denies headache(s) PFSH All Active Problems (Updated 05/25/22 @ 11:54 by DAVIN Salas) Pharyngitis (Acute) Condyloma acuminata (Acute) PMDD (premenstrual dysphoric disorder) (Acute) Menorrhagia (Acute) Otorrhea of right ear (Acute) Medical History (Updated 05/25/22 @ 11:54 by DAVIN Salas) Asthma Bipolar disorder Depression Drug dependence GERD (gastroesophageal reflux disease) OCD (obsessive compulsive disorder) DELROY (obstructive sleep apnea) Surgical History section Cholecystectomy Diagnostic Laproscopy EGD - MAC (09/24/16) Shoulder Surgery Family History Mother Personal history of malignant neoplasm Ovarian cancer Father Diabetes Personal history of malignant neoplasm Prostate cancer Social History Smoking/Tobacco Use Status: Current every day Smoking risk assessment performed?: Yes Alcohol Intake: never Drug use: Occasionally Substance use type: marijuana Do you feel safe at home: Yes Do you feel safe in your relationship?: Yes Female Reproductive History Menstrual Age of Menarche: 9 Duration of menses: 6-7 days History History 5 Para 2 Hx # Term Pregnancies 2 Multiple births Hx # Pregnancies Ectopic pregnancies AB induced Hx Number of Living Children 2 AB spontaneous Past Pregnancies Del. Date GA/Weeks # Preg Succ Route Wgt Sex Labor Lgth Anesth esia Location Prov Complic 05/14/96 42 No Yes 4053.982 g Male 03/29/99 40 No Yes 2863.302 g Female Exam Const General: cooperative, healthy appearing, comfortable, no acute distress, well developed and well groomed Nutritional Appearance: average body habitus and well nourished Orientation: alert and awake HENMT Head: normal to inspection, normocephalic and atraumatic Ears: hearing grossly normal bilaterally, external ears normal and TM's normal bilaterally General nose exam: external nose normal and nares normal Face and sinus: normal facial exam, sinuses nontender and face symmetric Mouth: oral mucosae normal, lip normal, tongue normal, oropharynx normal and moist mucous membranes Teeth and gingiva: dentition normal Throat: posterior oropharynx abnormal (erythematous), tonsils normal and uvula midline Eyes General: appearance normal, both eyes and all related structures Neck Neck: normal visual inspection, full ROM, no lymphadenopathy and no meningeal signs Resp Effort & Inspection: normal respiratory effort, able to speak in complete sentences and no respiratory distress Auscultation: clear to auscultation bilaterally, no rales, no rhonchi and no wheezes Cardio Rate: regular rate Rhythm: regular rhythm Heart Sounds: S1 normal and S2 normal Skin General skin exam: no rashes or lesions noted Neuro General: patient alert and patient awake Cognition: normal cognition Speech: speech normal Gait: normal gait Psych Appearance: grossly normal and well kempt Mental Status: mental status grossly normal Speech and Movement: speech and movement normal Course Vital Signs Vital signs: Vital Signs Temperature 36.8 C 05/25/22 10:17 Pulse 83 05/25/22 10:17 Respiratory Rate 18 05/25/22 10:17 Blood Pressure 119/87 05/25/22 10:17 Pulse Oximetry 94 05/25/22 10:17 Temperature 36.8 C 05/25/22 10:17 Temperature Source Skin 05/25/22 10:17 Pulse 83 05/25/22 10:17 Respiratory Rate 18 05/25/22 10:17 Blood Pressure 119/87 05/25/22 10:17 Blood Pressure Position Sitting 05/25/22 10:17 Pulse Oximetry 94 05/25/22 10:17 Oxygen Delivery Method Room Air 05/25/22 10:17 Oxygen Flow Rate 0 05/25/22 10:17 Pain Level 5 05/25/22 10:17 Lab/Test Results Lab/Test Results: 05/25/22 10:25 Tonsil - Not Specified Group A Streptococcus Culture - Pending POC Strep Test-LISA(Rapid) Start: 05/25/22 10:33 Freq: .Rapid Strep Test Status: Active Protocol: Document 05/25/22 10:35 IRVIN (Rec: 05/25/22 10:35 IRVIN [id number]) Strep test-LISA(Rapid)-POC POC-Strep test-LISA (Rapid) Negative POC-Strep test-LISA (Rapid) Negative
[2022-05-25 12:20] VITALS: BP 119/87; PULSE 83; RESP 18; TEMP 36.8; O2SAT 94
== END 2022-05-25 12:20 | disposition home or self-care (01) ==
PROVIDERS: Emergency Provider Physician Assistant; PCP Family Medicine
DX: J02.9 Acute pharyngitis, unspecified (principal)
CPT/HCPCS: 87880; 99282; 87081

== ENCOUNTER 2022-09-12 11:13 | Emergency (ER) | payer MEDICARE, MEDICAID, SELFPAY ==
[2022-09-12 11:22] VITALS: BP 128/101; PULSE 90; RESP 18; TEMP 37.5; O2SAT 97
[2022-09-12] MEDS: Acetaminophen 325 MG TAB 650 MG PO (12:07)
[2022-09-12] MEDS: Dexamethasone 10 MG/ML VIAL IM (12:07)
--- NOTE | 2022-09-12 12:12 | DI.RAD_ITS ---
Exam(s) XR CHEST 2V PA LATERAL EXAM: XR CHEST 2V PA LATERALzz CLINICAL HISTORY: cough, body aches TECHNIQUE: 2D digital imaging was performed. COMPARISON: CR,XR XR PORTABLE CHEST AP from 06/08/2020 FINDINGS: HEART: Normal size. Aorta: Not dilated. PULMONARY VASCULATURE: Normal. LUNGS: Clear. PLEURAL SPACE: No pleural effusion or pneumothorax. BONE:Unremarkable for age. IMPRESSION: No acute abnormality. DATA REPOSITORY: RADIATION DOSE DELIVERED:
[2022-09-12 12:53] VITALS: RESP 18
--- NOTE | 2022-09-12 13:07 | ED.GENADUL_ITS ---
Discharge Plan Disposition Patient Disposition: Home Condition: Stable Discharge Details Chief Complaint: GenMedical Clinical Impression: Viral illness Primary Care Provider: Diane Ying V ED Provider: Jesus Sal Home Meds and New Rx's Prescriptions: No Action levonorgestrel-ethinyl estrad 0.1-20 mg-mcg tablet 1 tab PO DAILY Qty: 84 4RF Patient Comments: not taking furosemide 20 MG tablet 20 mg PO PRN PRN paroxetine HCl [Paxil] 20 MG tablet 40 mg PO HS buprenorphine-naloxone [Suboxone] 1 EACH film 6 ea PO DAILY Patient Comments: 03/07/17 States taking 4mg/tapering off potassium chloride 10 MEQ capsule, extended release 10 meq PO DAILY Patient Comments: not taking omeprazole 40 MG capsule,delayed release(DR/EC) 40 mg PO DAILY AM Qty: 30 3RF albuterol sulfate 90 mcg/actuation HFA aerosol inhaler 2 puff INHALATION PRN PRN Patient Comments: INHALE 2 PUFFS BY MOUTH EVERY 4 TO 6 HOURS NEEDED Serevent Diskus 50 mcg/dose Blister With Device 1 inh INHALATION BID celecoxib [Celebrex] 100 mg Capsule 100 mg PO BID cholecalciferol (vitamin D3) [Vitamin D3] 25 mcg (1,000 unit) Capsule 1,000 unit PO DAILY Patient Comments: not taking magnesium oxide 400 mg magnesium Capsule 400 mg PO DAILY Patient Comments: not taking acetaminophen [Tylenol] 325 mg Tablet 1,000 mg PO PRN PRN ibuprofen 200 mg Tablet 200 mg PO PRN PRN Patient Comments: not taking ciprofloxacin HCl 500 mg tablet 500 mg PO BID Qty: 20 0RF Patient Comments: not taking Discharge Instructions Instructions: Viral Syndrome (ED) Additional Instructions: Please follow-up closely with your primary care physician Medical Decision Making 42-year-old female presents with body aches fatigue cough nasal congestion and ear congestion over the past several days. Of note for member at home with similar symptoms. Patient is afebrile nontoxic not hypoxic not tachycardic. No respiratory distress lungs clear bilaterally. Cerumen impaction of right ear, slight erythema of left TM without bulging or effusion. Patient appears well- hydrated. No GI symptomatology. Likely viral upper respiratory symptoms. Lower suspicion for pneumonia. Will obtain screening x-ray, trial of dexamethasone and acetaminophen. Likely home with home care instructions return precautions. Will screen for COVID flu and RSV HPI General Date/Time Provider Initiated Documentation: 09/12/22 11:36 . HPI Narrative: 42-year-old female presents with nasal congestion ear pressure cough and body aches over the past several days. Related Data Home Medications Medication Instructions Recorded Confirmed paroxetine HCl 20 mg tablet (Paxil) 40 mg PO HS 10/13/12 09/12/22 buprenorphine 12 mg-naloxone 3 mg 6 ea PO DAILY 11/03/13 09/12/22 sublingual film (Suboxone) furosemide 20 mg tablet 20 mg PO PRN PRN 01/30/16 09/12/22 potassium chloride 10 mEq 10 meq PO DAILY 09/20/16 01/09/22 capsule,extended release omeprazole 40 mg capsule,delayed 40 mg PO DAILY AM ##30 09/24/16 09/12/22 release celecoxib 100 mg capsule (Celebrex) 100 mg PO BID 12/02/19 09/12/22 cholecalciferol (vitamin D3) 25 1,000 unit PO DAILY 12/02/19 01/09/22 mcg (1,000 unit) capsule (Vitamin D3) magnesium oxide 400 mg PO DAILY 12/02/19 01/09/22 salmeterol 50 mcg/dose blister 1 inh inhalation BID 12/02/19 09/12/22 powder for inhalation (Serevent Diskus) acetaminophen 325 mg tablet 1,000 mg PO PRN PRN 02/07/20 09/12/22 (Tylenol) ciprofloxacin HCl 500 mg tablet 500 mg PO BID #20 tabs 02/07/20 01/09/22 ibuprofen 200 mg tablet 200 mg PO PRN PRN 02/07/20 01/09/22 levonorgestrel-ethinyl estradiol 1 tab PO DAILY #84 tabs 01/09/22 01/09/22 0.1 mg-20 mcg tablet albuterol sulfate 90 mcg/actuation 2 puff inhalation PRN PRN 09/12/22 09/12/22 aerosol inhaler Previous Rx's Medication Instructions Recorded omeprazole 40 mg capsule,delayed 40 mg PO DAILY AM ##30 09/24/16 release ciprofloxacin HCl 500 mg tablet 500 mg PO BID #20 tabs 02/07/20 levonorgestrel-ethinyl estradiol 1 tab PO DAILY #84 tabs 01/09/22 0.1 mg-20 mcg tablet Allergies Allergy/AdvReac Type Severity Reaction Status Date / Time sertraline HCl [From Zoloft] AdvReac Severe Psychosis Unverified 09/12/22 11:24 fluticasone AdvReac Mild mouth Unverified 09/12/22 11:24 [From Advair Diskus] infection salmeterol AdvReac Mild mouth Unverified 09/12/22 11:24 [From Advair Diskus] infection sertraline [From Zoloft] AdvReac Suicidal Unverified 09/12/22 11:24 ideation General Stated Complaint: GenMedical MACRINA: 4 Review of Systems Narrative: Review of Systems Constitutional: Fatigue, body aches Eyes: negative ENT: Ear pressure Cardiovascular: negative Respiratory: Cough Gastrointestinal: negative : negative Musculoskeletal: negative Skin: negative Neurologic: negative Psych: negative PFSH All Active Problems (Updated 09/12/22 @ 13:30 by Jesus Sal MD) Viral illness (Acute) Condyloma acuminata (Acute) PMDD (premenstrual dysphoric disorder) (Acute) Menorrhagia (Acute) Otorrhea of right ear (Acute) Medical History (Updated 09/12/22 @ 13:30 by Jesus Sal MD) Asthma Bipolar disorder Depression Drug dependence GERD (gastroesophageal reflux disease) OCD (obsessive compulsive disorder) DELROY (obstructive sleep apnea) Surgical History section Cholecystectomy Diagnostic Laproscopy EGD - MAC (09/24/16) Shoulder Surgery Family History Mother Personal history of malignant neoplasm Ovarian cancer Father Diabetes Personal history of malignant neoplasm Prostate cancer Social History Smoking/Tobacco Use Status: Current every day Smoking risk assessment performed?: Yes Alcohol Intake: never Drug use: Occasionally Substance use type: marijuana Do you feel safe at home: Yes Do you feel safe in your relationship?: Yes Female Reproductive History Menstrual Age of Menarche: 9 Duration of menses: 6-7 days History History 2 5 Para 2 Hx # Term Pregnancies 2 Multiple births Hx # Pregnancies Ectopic pregnancies AB induced Hx Number of Living Children 2 AB spontaneous Past Pregnancies Del. Date GA/Weeks # Preg Succ Route Wgt Sex Labor Lgth Anesth esia Location Prov Complic 05/14/96 42 No Yes 4053.982 g Male 03/29/99 40 No Yes 2863.302 g Female Exam Narrative Exam Narrative: Physical Examination General: alert, awake, cooperative, resting comfortably, no acute distress HEENT: normocephalic, atraumatic; PERRL, EOM intact, conjunctiva normal; no nasal discharge; moist mucous membranes, oral and pharyngeal mucosa normal, tolerating secretions; cerumen impaction of right ear, slight erythema of TM without bulging and left ear Neck: supple, trachea midline; full ROM Chest: normal to inspection Respiratory: normal respiratory effort, speaking in full sentences, clear to auscultation, no wheezing, rales or rhonchi Cardiac: regular rate, regular rhythm, S1S2 intact, no murmurs rubs or gallops GI: abdomen soft, non-tender, non-distended; no palpable mass or hepatosplenomegaly Skin: no lesions, rashes or trauma appreciated Neuro: AAOx3, normal speech, moving all extremities Psych: Appropriate mood and affect Course Vital Signs Vital signs: Vital Signs Temperature 37.5 C 09/12/22 11:22 Pulse 90 09/12/22 11:22 Respiratory Rate 18 09/12/22 11:22 Blood Pressure 128/101 H 09/12/22 11:22 Pulse Oximetry 97 09/12/22 11:22 Temperature 37.5 C 09/12/22 11:22 Temperature Source Oral 09/12/22 11:22 Pulse 90 09/12/22 11:22 Respiratory Rate 18 09/12/22 12:53 Respiratory Effort Normal, Non-Labored 09/12/22 12:53 Respiratory Depth Normal 09/12/22 12:53 Respiratory Pattern Normal 09/12/22 12:53 Blood Pressure 128/101 H 09/12/22 11:22 Pulse Oximetry 97 09/12/22 11:22 Oxygen Delivery Method Room Air 09/12/22 11:22 Oxygen Flow Rate 0 09/12/22 11:22 Lab/Test Results Lab/Test Results: Laboratory Tests Range/Units 09/12/22 11:58 COVID-19 Source Cancelled SARS-CoV-2 (PCR) Cancelled Influenza Type A (PCR) Cancelled Influenza Type B (PCR) Cancelled RSV (PCR) Cancelled
[2022-09-12 13:19] LABS: COVID-19 PCR Negative (Negative); Influenza A PCR Negative (Negative); Influenza B PCR Negative (Negative); RSV PCR Negative (Negative)
[2022-09-12 13:21] LABS: Source Nasopharynx
[2022-09-12 13:35] VITALS: BP 138/82; PULSE 78; RESP 18; O2SAT 96
== END 2022-09-12 13:36 | disposition home or self-care (01) ==
PROVIDERS: Emergency Provider Emergency Medicine; PCP Family Medicine
DX: B34.9 Viral infection, unspecified (principal); J45.909 Unspecified asthma, uncomplicated; F17.200 Nicotine dependence, unspecified, uncomplicated; Z20.822 Contact with and (suspected) exposure to COVID-19
CPT/HCPCS: 87637; 96372; 99284; 71046; J1100

== ENCOUNTER 2023-08-27 20:28 | Outpatient (REF) | payer MEDICARE, SELFPAY ==
[2023-08-27 21:21] LABS: HCT 40.7 % (36.0-46.0); HGB 13.5 g/dL (11.2-15.7); MCHC 33.2 % (32.0-36.0); MCV 94 fL (80-95); RBC 4.35 10^6/uL (3.93-5.22); RDW 13.5 % (11.7-14.6); RDW-SD 46.5 fL; WBC 11.76 10^3/uL (4.4-10.8)
[2023-08-27 21:43] LABS: Anion Gap 7.2 mmol/L (3-11); BUN 9 mg/dL (7-18); CO2 30.8 mmol/L (21.0-32.0); CREATININE 0.8 mg/dL (0.55-1.02); Calcium 8.8 mg/dL (8.5-10.1); Chloride 104 mmol/L (98-107); Estimated GFR 92.54 (mL/min/1.73m2); Glucose 79 mg/dL (74-106); Potassium 4.1 mmol/L (3.5-5.1); Sodium 142 mmol/L (136-145); TSH (W/Ref FT4) 1.12 uIU/mL (0.36-3.74)
[2023-08-27 21:58] LABS: Hemoglobin A1C 5.1 % (<5.7)
== END 2023-08-27 20:29 | disposition home or self-care (01) ==
LOC: NCHCN 20:28
PROVIDERS: PCP Family Medicine; Visit Provider Nurse Practitioner Family
DX: R60.0 Localized edema (principal); R63.1 Polydipsia; K21.9 Gastro-esophageal reflux disease without esophagitis
CPT/HCPCS: 80048; 85027; 83036; 84443

== ENCOUNTER 2023-09-22 15:02 | Emergency (ER) | payer MEDICARE, SELFPAY ==
[2023-09-22 15:09] VITALS: BP 193/104; PULSE 104; RESP 16; TEMP 36.7; O2SAT 98
--- NOTE | 2023-09-22 15:30 | DI.US_ITS ---
Exam(s) US PELVIS TRANSVAGINAL EXAM: US PELVIS TRANSVAGINAL CLINICAL HISTORY: hx ovarian resection, IUD, pelvic pain bleeding. TECHNIQUE: Transabdominal and transvaginal pelvic ultrasound was performed using standard protocol. COMPARISON: US US PELVIS TRANSVAGINAL from 01/24/2022 FINDINGS: UTERUS: Position: Anteverted. Size: 8.1 long by 3.9 AP by 4.1 transverse cm Endometrium: 0.4 cm. Normal for patient's menstrual status. The patient has an IUD which is in the lo wer uterine segment extending into the cervix. Myometrium: There is a 2.1 x 1.8 x 2.5 cm uterine fibroid in the anterior fundus. Cervix: Cervical nabothian cysts were present. OVARIES: The ovaries were not visualized on this examination. CUL-DE-SAC: Free fluid: None. Other: None. IMPRESSION: 1. Fibroid uterus with endometrial stripe within normal limits. 2. The IUD is in a low position with extension into the cervix. 3. The ovaries were not visualized on this examination. DATA REPOSITORY:
--- NOTE | 2023-09-22 15:39 | W.ED.GENAD ---
Discharge Plan Disposition Patient Disposition: Home Condition: Stable Discharge Details Clinical Impression: Vaginal discharge Primary Care Provider: Diane Ying V ED Provider: Jesus Sal Home Meds and New Rx's Prescriptions: New doxycycline hyclate 100 mg capsule 100 mg PO BID 7 Days Qty: 14 0RF No Action furosemide 20 MG tablet 20 mg PO PRN PRN buprenorphine-naloxone [Suboxone] 1 EACH film 1 film buccal DAILY Patient Comments: 8mg film omeprazole 40 MG capsule,delayed release(DR/EC) 40 mg PO DAILY AM Qty: 30 3RF albuterol sulfate 90 mcg/actuation HFA aerosol inhaler 2 puff INHALATION PRN PRN Patient Comments: INHALE 2 PUFFS BY MOUTH EVERY 4 TO 6 HOURS NEEDED Serevent Diskus 50 mcg/dose Blister With Device 1 inh INHALATION BID celecoxib [Celebrex] 100 mg Capsule 100 mg PO BID cholecalciferol (vitamin D3) [Vitamin D3] 25 mcg (1,000 unit) Capsule 1,000 unit PO DAILY Patient Comments: not taking acetaminophen [Tylenol] 325 mg Tablet 1,000 mg PO PRN PRN ibuprofen 200 mg Tablet 200 mg PO PRN PRN Patient Comments: not taking Discharge Instructions Instructions: Vaginal Discharge (ED) Additional Instructions: Please follow-up closely with your primary [facility] [employer] [facility] as scheduled. Return to the emergency department for any worsening symptoms HPI General Date/Time Provider Initiated Documentation: 09/22/23 15:12. HPI Narrative: 43-year-old female history of partial ovarian resection last year at [facility], IUD placed for local hormonal factors, presents with pelvic discomfort consistent vaginal spotting over the last several weeks to months and vaginal discharge, has an appointment to see [facility] [employer] [facility] in the coming weeks however symptoms of gotten worse. Denies any history of STIs, denies sexual activity in the last year Related Data Home Medications Medication Instructions Recorded Confirmed buprenorphine 12 mg-naloxone 3 mg 1 film buccal DAILY 11/03/13 09/22/23 sublingual film (Suboxone) furosemide 20 mg tablet 20 mg PO PRN PRN 01/30/16 09/22/23 omeprazole 40 mg capsule,delayed 40 mg PO DAILY AM ##30 09/24/16 09/22/23 release celecoxib 100 mg capsule (Celebrex) 100 mg PO BID 12/02/19 09/22/23 cholecalciferol (vitamin D3) 25 1,000 unit PO DAILY 12/02/19 09/22/23 mcg (1,000 unit) capsule (Vitamin D3) salmeterol 50 mcg/dose blister 1 inh inhalation BID 12/02/19 09/22/23 powder for inhalation (Serevent Diskus) acetaminophen 325 mg tablet 1,000 mg PO PRN PRN 02/07/20 09/22/23 (Tylenol) ibuprofen 200 mg tablet 200 mg PO PRN PRN 02/07/20 09/22/23 albuterol sulfate 90 mcg/actuation 2 puff inhalation PRN PRN 09/12/22 09/22/23 aerosol inhaler doxycycline hyclate 100 mg capsule 100 mg PO BID 7 days #14 caps 09/22/23 Previous Rx's Medication Instructions Recorded omeprazole 40 mg capsule,delayed 40 mg PO DAILY AM ##30 09/24/16 release doxycycline hyclate 100 mg capsule 100 mg PO BID 7 days #14 caps 09/22/23 Allergies Allergy/AdvReac Type Severity Reaction Status Date / Time sertraline HCl [From Zoloft] AdvReac Severe Psychosis Unverified 09/22/23 15:06 fluticasone AdvReac Mild mouth Unverified 09/22/23 15:06 [From Advair Diskus] infection salmeterol AdvReac Mild mouth Unverified 09/22/23 15:06 [From Advair Diskus] infection sertraline [From Zoloft] AdvReac Suicidal Unverified 09/22/23 15:06 ideation General Stated Complaint: [employer] [employer] [facility] [facility] MACRINA: 4 Review of Systems Narrative: Review of Systems Constitutional: negative Eyes: negative ENT: negative Cardiovascular: negative Respiratory: negative Gastrointestinal: negative : Pelvic discomfort, vaginal bleeding vaginal discharge Musculoskeletal: negative Skin: negative Neurologic: negative Psych: negative Exam Narrative Exam Narrative: Physical Examination General: alert, awake, cooperative, resting comfortably, no acute distress HEENT: normocephalic, atraumatic; PERRL, EOM intact, conjunctiva normal; no nasal discharge; moist mucous membranes, oral and pharyngeal mucosa normal, tolerating secretions Neck: supple, trachea midline; full ROM Chest: normal to inspection Respiratory: normal respiratory effort, speaking in full sentences, clear to auscultation, no wheezing, rales or rhonchi Cardiac: regular rate, regular rhythm, S1S2 intact, no murmurs rubs or gallops GI: abdomen soft, non-tender, non-distended; no palpable mass or hepatosplenomegaly : Normal-appearing cervix, IUD string in place, scant cloudy white vaginal discharge Skin: no lesions, rashes or trauma appreciated Neuro: AAOx3, normal speech, moving all extremities Psych: Appropriate mood and affect Course Vital Signs Vital signs: Vital Signs Temperature 36.7 C 09/22/23 15:09 Pulse 104 H 09/22/23 15:09 Respiratory Rate 16 09/22/23 15:09 Blood Pressure 193/104 H 09/22/23 15:09 Pulse Oximetry 98 09/22/23 15:09 Temperature 36.7 C 09/22/23 15:09 Temperature Source Temporal Artery Scan 09/22/23 15:09 Pulse 104 H 09/22/23 15:09 Respiratory Rate 16 09/22/23 15:09 Respiratory Effort Normal, Non-Labored 09/22/23 15:11 Blood Pressure 193/104 H 09/22/23 15:09 Blood Pressure Position Sitting 09/22/23 15:09 Pulse Oximetry 98 09/22/23 15:09 Oxygen Delivery Method Room Air 09/22/23 15:09 Oxygen Flow Rate 0 09/22/23 15:09 Pain Level 7 09/22/23 15:09 Medical Decision Making 43-year-old female history of partial ovarian resection at [facility] 1 year ago, was told that results were negative for ovarian cancer, Mirena IUD placed for local hormonal control per patient, scheduled to follow-up with [facility] [employer] [facility] in the coming weeks however patient has had worsening vaginal spotting and discharge over the last several weeks as well as pelvic discomfort. Afebrile nontoxic mildly tachycardic on arrival also noted to be hypertensive, consider related to discomfort. Must consider pelvic mass versus pelvic infection versus malposition of IUD versus UTI low suspicion for . Will obtain basic labs, pelvic ultrasound, vaginal examination, vaginal pathogen swab and gonorrhea chlamydia swab. Disposition pending results of imaging and pelvic examination. 19: 14 after speaking with nurse patient does admit new sexual partner, found to have scant white vaginal discharge on pelvic examination. Will treat empirically for STI. Patient to follow-up closely with her primary [employer] [facility] [facility]. Home care instructions and return precautions given Quality:SDOH Health Related Social Needs: No Data to Display PFSH All Active Problems (Updated 09/22/23 @ 19:15 by Jesus Sal MD) Vaginal discharge (Acute) Condyloma acuminata (Acute) PMDD (premenstrual dysphoric disorder) (Acute) Menorrhagia (Acute) Otorrhea of right ear (Acute) Medical History (Updated 09/22/23 @ 19:15 by Jesus Sal MD) Asthma Drug dependence GERD (gastroesophageal reflux disease) OCD (obsessive compulsive disorder) Depression Bipolar disorder DELROY (obstructive sleep apnea) Surgical History Shoulder Surgery EGD - MAC (09/24/16) Diagnostic Laproscopy Cholecystectomy section Family History Mother Personal history of malignant neoplasm Ovarian cancer Father Diabetes Personal history of malignant neoplasm Prostate cancer Social History Smoking/Tobacco Use Status: Current every day Smoking risk assessment performed?: Yes Alcohol Intake: never Drug use: Occasionally Substance use type: marijuana Details: on Suboxone Housing: apartment Do you feel safe at home: Yes Do you feel safe in your relationship?: Yes Female Reproductive History Menstrual Age of Menarche: 9 Duration of menses: 6-7 days History History 5 Para 2 Hx # Term Pregnancies 2 Multiple births Hx # Pregnancies Ectopic pregnancies AB induced Hx Number of Living Children 2 AB spontaneous Past Pregnancies Del. Date GA/Weeks # Preg Succ Route Wgt Sex Labor Lgth Anesthesia Location Prov Complic 05/14/96 42 No Yes 4053.982 g Male 03/29/99 40 No Yes 2863.302 g Female
--- NOTE | 2023-09-22 17:54 | NUR.NOTE ---
assigned to this patient at 1745, delay in labs and care from previous provider or extended wait in lobby. Nursing Note:
[2023-09-22 18:32] LABS: Abs Immature Grans 0.04 10^3/uL (0.0-0.06); Absolute Basophil Count 0.04 10^3/uL (0.0-0.2); Absolute Eosinophil Count 0.12 10^3/uL (0.0-0.7); Absolute Lymphocyte Count 3.03 10^3/uL (1.2-3.4); Absolute Monocyte Count 0.61 10^3/uL (0.1-0.8); Absolute Neutrophil Count 6.29 10^3/uL (1.2-6.7); Basophils % 0.4; Eosinophils % 1.2; HCT 41.7 % (36.0-46.0); HGB 13.9 g/dL (11.2-15.7); Immature Grans % 0.4; Lymphocytes % 29.9; MCH 31.6 pg (27.0-33.0); MCHC 33.3 % (32.0-36.0); MCV 95 fL (80-95); MPV 12.4 fL (8.0-11.0); Neutrophils % 62.1; Platelet Count 161 10^3/uL (130-400); RDW 13.9 % (11.7-14.6); RDW-SD 48.5 fL; WBC 10.13 10^3/uL (4.4-10.8)
[2023-09-22 18:34] LABS: ALT 16 U/L (14-59); AST 15 U/L (15-37); Albumin 3.7 g/dL (3.4-5.0); Alkaline Phosphatase 49 U/L (46-116); Anion Gap 5.7 mmol/L (3-11); BUN 13 mg/dL (7-18); Bilirubin, Total 1.1 mg/dL (0.2-1.0); CO2 30.3 mmol/L (21.0-32.0); CREATININE 0.8 mg/dL (0.55-1.02); Calcium 8.2 mg/dL (8.5-10.1); Chloride 104 mmol/L (98-107); Estimated GFR 92.54 (mL/min/1.73m2); Glucose 92 mg/dL (74-106); Potassium 3.3 mmol/L (3.5-5.1); Sodium 140 mmol/L (136-145)
[2023-09-22] MEDS: Doxycycline Hyclate 100 MG CAP PO (19:00)
[2023-09-22] MEDS: cefTRIAXone 1 GM VIAL 0.5 GM IM (19:00)
--- NOTE | 2023-09-22 19:23 | NUR.NOTE ---
assist with pelvic exam and obtain vaginal culture sample Nursing Note:
[2023-09-24 13:33] LABS: Chlamydia Result Negative (Negative); GC Result Negative (Negative)
== END 2023-09-22 19:23 | disposition home or self-care (01) ==
PROVIDERS: Emergency Provider Emergency Medicine; PCP Family Medicine
DX: N89.8 Other specified noninflammatory disorders of vagina (principal)
CPT/HCPCS: 80053; 87491; 87591; 96372; 99283; 76830; 76856; 85025; 87480; 87510; 87660; J0696

== ENCOUNTER 2024-04-30 15:18 | Outpatient (CLI) | payer MEDICARE, SELFPAY ==
[2024-04-30 07:50] LABS: Anion Gap 6.9 mmol/L (3-11); BUN 11 mg/dL (7-18); CO2 32.1 mmol/L (21.0-32.0); CREATININE 0.9 mg/dL (0.55-1.02); Calcium 9.5 mg/dL (8.5-10.1); Chloride 104 mmol/L (98-107); Estimated GFR 79.85 (mL/min/1.73m2); Glucose 110 mg/dL (74-106); Potassium 3.8 mmol/L (3.5-5.1); Sodium 143 mmol/L (136-145)
== END 2024-04-30 15:19 | disposition home or self-care (01) ==
LOC: LBO 15:18
PROVIDERS: PCP Nurse Practitioner Family; Visit Provider Nurse Practitioner Family
DX: I10 Essential (primary) hypertension (principal)
CPT/HCPCS: 36415; 80048

== ENCOUNTER 2024-06-17 04:18 | Emergency (ER) | payer MEDICARE, SELFPAY ==
[2024-06-17 04:21] VITALS: BP 171/105; PULSE 119; RESP 30; TEMP 37.6; O2SAT 95
--- NOTE | 2024-06-17 04:26 | ED.GENADUL_ITS ---
Discharge Plan Disposition Patient Disposition: Home Condition: Good Discharge Details Clinical Impression: Upper respiratory infection, viral Primary Care Provider: Amber Esparza ED Provider: Alverto Garcia Meds and New Rx's Prescriptions: New prednisone 20 mg tablet 40 mg PO DAILY Qty: 8 0RF benzonatate 100 mg capsule 100 mg PO TID PRN (Reason: cough) Qty: 20 0RF Continued potassium chloride 10 mEq tablet extended release 10 meq PO DAILY buprenorphine-naloxone [Suboxone] 8-2 mg film 1 film buccal DAILY lisinopril 10 mg tablet 10 mg PO DAILY Qty: 30 3RF paroxetine HCl 20 mg tablet 20 mg PO QAM Qty: 30 3RF celecoxib [Celebrex] 100 mg capsule 100 mg PO BID Qty: 60 3RF omeprazole 20 mg tablet,delayed release (DR/EC) 20 mg PO DAILY Qty: 30 3RF sumatriptan succinate 100 mg tablet See Rx Instructions PO .COMPLEX Qty: 14 3RF Rx Instructions: take 1 tab at onset of headache; if no relief, may repeat 1 tab after at least 2 hrs; max = 2 tabs/24 hrs PO furosemide 20 MG tablet 20 mg PO PRN PRN albuterol sulfate 90 mcg/actuation HFA aerosol inhaler 2 puff INHALATION Q6H PRN (Reason: shortness of breath) Qty: 8.5 3RF Discharge Instructions Instructions: How to use your metered dose inhaler (adults), Upper Respiratory Infection ED Additional Instructions: You were seen in the ED for URI symptoms with associated shortness of breath and wheezing. Symptoms improved with a DuoNeb treatment. Your nasal swab is negative for flu, RSV, COVID at this time. Chest x-ray shows no evidence of infiltrate/pneumonia. Given your history of asthma we will do a short burst of prednisone. You have been provided a spacer to use with your inhaler. You may take 2 puffs every 4 hours over the next few days while ill. We also provided a prescription for benzonatate to help with cough. Rest and hydrate. Acetaminophen or ibuprofen for fever and bodyaches. Follow-up with primary care next week. Return to ED for significantly worsening shortness of breath, mental status change, chest pain, persistent vomiting, other concerns. Referrals: Amber Esparza APRN [Primary Care Provider] - HPI General Mode of arrival: ambulatory . Date/Time Provider Initiated Documentation: 06/17/24 04:26 . Limitations to Documentation: no limitations . Information obtained by: patient and RN notes reviewed . HPI Narrative: Patient presents to ED with complaint of cough, shortness of breath, chest tightness. Symptoms began 2 days ago. She is having posttussive emesis. She has diffuse allover body aches. She has felt hot at home but has not taken her temperature. Has some episode of diarrhea. Denies any abdominal pain. Denies nausea, reports the vomiting is related to cough and gagging. Has been using her albuterol inhaler as well as [id number] cold medicines without significant relief. Does report history of asthma as well as cigarette smoking. Related Data Home Medications ?Medication ?Instructions ?Recorded ?Confirmed furosemide 20 mg tablet 20 mg PO PRN PRN 01/30/16 06/17/24 buprenorphine 8 mg-naloxone 2 mg 1 film buccal DAILY 04/08/24 06/17/24 sublingual film (Suboxone) potassium chloride 10 mEq 10 meq PO DAILY Leg Swelling 04/08/24 06/17/24 tablet,extended release celecoxib 100 mg capsule (Celebrex) 100 mg PO BID #60 caps 04/13/24 06/17/24 lisinopril 10 mg tablet 10 mg PO DAILY #30 tabs 04/13/24 06/17/24 omeprazole 20 mg tablet,delayed 20 mg PO DAILY #30 tabs 04/13/24 06/17/24 release paroxetine HCl 20 mg tablet 20 mg PO QAM #30 tabs 04/13/24 06/17/24 sumatriptan succinate 100 mg tablet See Rx Instructions PO .COMPLEX 04/13/24 06/17/24 #14 tabs albuterol sulfate 90 mcg/actuation 2 puff inhalation Q6H PRN 06/08/24 06/17/24 aerosol inhaler shortness of breath #8.5 grams benzonatate 100 mg capsule 100 mg PO TID PRN cough #20 caps 06/17/24 prednisone 20 mg tablet 40 mg (2 x 20 mg) PO DAILY #8 tabs 06/17/24 Previous Rx's ?Medication ?Instructions ?Recorded celecoxib 100 mg capsule (Celebrex) 100 mg PO BID #60 caps 04/13/24 lisinopril 10 mg tablet 10 mg PO DAILY #30 tabs 04/13/24 omeprazole 20 mg tablet,delayed 20 mg PO DAILY #30 tabs 04/13/24 release paroxetine HCl 20 mg tablet 20 mg PO QAM #30 tabs 04/13/24 sumatriptan succinate 100 mg tablet See Rx Instructions PO .COMPLEX 04/13/24 #14 tabs albuterol sulfate 90 mcg/actuation 2 puff inhalation Q6H PRN 06/08/24 aerosol inhaler shortness of breath #8.5 grams benzonatate 100 mg capsule 100 mg PO TID PRN cough #20 caps 06/17/24 prednisone 20 mg tablet 40 mg (2 x 20 mg) PO DAILY #8 tabs 06/17/24 Allergies Allergy/AdvReac Type Severity Reaction Status Date / Time sertraline HCl (From Zoloft) AdvReac Severe Psychosis Unverified 06/17/24 04:25 fluticasone (From Advair AdvReac Mild mouth Unverified 06/17/24 04:25 Diskus) infection salmeterol (From Advair AdvReac Mild mouth Unverified 06/17/24 04:25 Diskus) infection sertraline (From Zoloft) AdvReac Suicidal Unverified 06/17/24 04:25 ideation General Stated Complaint: RespSymp MACRINA: 3 Review of Systems Narrative: Per HPI Exam Narrative Exam Narrative: Const: WDWN female in NAD. VS per triage. HEENT: NC/AT. Normal facial exam. Neck: Supple. Trachea midline. Lungs: Mildly tachypneic but no respiratory distress or increased work of breathing, mild diffuse wheeze and rhonchi throughout. Good air exchange present. Cor: Mild tachycardia, RRR without murmur. Good radial pulses. Neuro: A+O x 3. Normal speech, mentation, gait. Cranial nerves II - XII grossly intact. No gross motor or sensory deficit. Ext: No C/C/E. Course Vital Signs Vital signs: Vital Signs Temperature 99.6 F 06/17/24 04:21 Pulse 119 H 06/17/24 04:21 Respiratory Rate 30 H 06/17/24 04:21 Blood Pressure 171/105 H 06/17/24 04:21 Pulse Oximetry 95 06/17/24 04:21 Temperature 99.6 F 06/17/24 04:21 Temperature Source Oral 06/17/24 04:21 Pulse 119 H 06/17/24 04:21 Respiratory Rate 30 H 06/17/24 04:21 Blood Pressure 171/105 H 06/17/24 04:21 Blood Pressure Position Sitting 06/17/24 04:21 Pulse Oximetry 95 06/17/24 04:21 Medical Decision Making Patient presenting to ED with onset of flulike symptoms 2 days ago. She is having posttussive emesis and feels short of breath with chest tightness. She is mildly tachypneic and tachycardic but she is afebrile and O2 saturation is normal on room air. Some diffuse wheezing rhonchi throughout. Reports history of asthma as well as cigarette smoking. Fluvid swab has been sent. Will give DuoNeb treatment and obtain chest x-ray. No indication for laboratory studies at this time. Patient feels improved after DuoNeb. Chest x-ray per my read with no acute cardiopulmonary process. Nasal swab negative. Will provide patient with a spacer to use with her albuterol inhaler. Instructed to use every 4 hours over the next couple of days. Given her history of asthma and her smoking we will do a short prednisone burst. Will provide Tessalon Perles for her cough. Otherwise symptomatic treatment. Follow-up with primary care next week. Return precautions provided. Imaging Data Radiologic Study: Attestation: I personally reviewed and interpreted this imaging study as follows: Imaging: X-Ray My impression: see MDM Quality:SDOH Health Related Social Needs: Health related social needs details Aware of local sup ports. Also discussed options of utilizing [employer]. States she has her children for support. PFSH All Active Problems (Updated 06/17/24 @ 05:31 by Alverto Garcia MD) Upper respiratory infection, viral (Acute) Migraine (Chronic) Low back pain (Acute) Back pain (Acute) Pain of right hip joint (Acute) Therapeutic drug monitoring (Acute) Prediabetes (Acute) Dyspnea (Acute) Sleep apnea (Acute) Joint pain (Acute) Noninflammatory disorder of the female genital organs (Acute) Discharge from nipple (Acute) Gastroesophageal reflux disease without esophagitis (Acute) Temporomandibular joint disorder (Acute) Mild intermittent asthma (Acute) Seasonal allergic rhinitis (Acute) Posttraumatic stress disorder (Acute) Nicotine dependence (Acute) Opioid dependence (Acute) Pure hyperglyceridemia (Acute) Herpesvirus infection (Acute) Condyloma acuminata (Acute) PMDD (premenstrual dysphoric disorder) (Acute) Medical History Hypertension History of malignant neoplasm of cervix H/O fracture of vertebral column Asthma Drug dependence GERD (gastroesophageal reflux disease) OCD (obsessive compulsive disorder) Depression Bipolar disorder DELROY (obstructive sleep apnea) Surgical History H/O: hysterectomy (02/05/24) Hx of section Shoulder Surgery EGD - MAC (09/24/16) Diagnostic Laproscopy Cholecystectomy Family History Mother Personal history of malignant neoplasm Ovarian cancer Father Diabetes Personal history of malignant neoplasm Prostate cancer Social History Smoking/Tobacco Use Status: Current every day Tobacco Type: cigarettes Tobacco: How many years used: 30 Quit status: not considering quitting Smoking risk assessment performed?: Yes Alcohol Intake: never Drug use: Daily Substance use type: marijuana Details: on Suboxone Adopted: No Caregiver/Support person: No Foster care: No Household members: children Housing: apartment Number of Children: 2 number of grandchildren: 0 Communication Needs: None Education Level: high school Do you need help understanding health information?: Rarely current occupation: Disability Pets and animals: Yes (2 Cats, 1 Dog) Pets and animals: cat(s) and dog(s) Sexually active: Yes Do you think of yourself as: straight/heterosexual Current gender identity: female What is your relationship status?: How often do you talk on the phone with friends or family?: once per week Do you belong to any clubs or organized social groups?: no Panel score (0-1 are the most socially isolated patients): 0 What type of physical activity do you participate in: walking Duration: 60-90 minutes/day Frequency: daily Verna/Episcopal: None Special verna needs: Yes Seatbelt use: sometimes Helmet use: No 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 Date GA/Weeks # Preg Succ Route Wgt Sex Labor Lgth Anesth esia Location Prov Complic 05/14/96 42 No Yes 4053.982 g Male 03/29/99 40 No Yes 2863.302 g Female
--- NOTE | 2024-06-17 04:48 | DI.RAD_ITS ---
Exam(s) XR CHEST 2V PA LATERAL EXAM: XR CHEST 2V PA LATERAL CLINICAL HISTORY: cough, SOB. TECHNIQUE: 2D digital imaging was performed. COMPARISON: No exams were available for comparison FINDINGS: 2 views: Heart size is normal. The mediastinum is not widened. Lungs are clear. No infiltrates nor pleural effusions. IMPRESSION: No acute pulmonary findings. DATA REPOSITORY: RADIATION DOSE DELIVERED:
[2024-06-17] MEDS: Albuterol/Ipratropium 3 ML UPD VIAL UPD (04:49)
[2024-06-17 05:10] LABS: COVID-19 PCR Negative (Negative); Influenza A PCR Negative (Negative); Influenza B PCR Negative (Negative); RSV PCR Negative (Negative); Source Nasopharynx
--- NOTE | 2024-06-17 05:28 | DI.VRAD_ITS ---
PROCEDURE INFORMATION: Exam: XR Chest Exam date and time: 06/17/2024 4:46 AM Age: 44 years old Clinical indication: Cough and shortness of breath; Patient HX: Cough, SOB TECHNIQUE: Imaging protocol: Radiologic exam of the chest. Views: 2 views. COMPARISON: CR XR CHEST 2V PA LATERAL 09/12/2022 12:10 PM FINDINGS: Lungs: No focal consolidation seen. Pleural spaces: No large pleural effusion seen. Heart/Mediastinum: No cardiomegaly. Bones/joints: No acute abnormality. IMPRESSION: No acute findings to explain reported symptoms. Dictated and Authenticated by: Homa Goode MD. Ordering:BRUNA Del Toro MD
[2024-06-17] MEDS: Benzonatate 100 MG CAP PO (05:42)
[2024-06-17] MEDS: predniSONE 20 MG TAB 60 MG PO (05:42)
== END 2024-06-17 05:45 | disposition home or self-care (01) ==
PROVIDERS: Emergency Provider Emergency Medicine; PCP Nurse Practitioner Family
DX: J06.9 Acute upper respiratory infection, unspecified (principal); B97.89 Other viral agents as the cause of diseases classified elsewhere; J45.20 Mild intermittent asthma, uncomplicated; I10 Essential (primary) hypertension; F17.210 Nicotine dependence, cigarettes, uncomplicated
CPT/HCPCS: 87637; 94640; 99284; 71046; J7512; J7620

== ENCOUNTER 2024-08-25 15:45 | Outpatient (CLI) | payer MEDICARE, SELFPAY ==
--- NOTE | 2024-08-25 15:45 | RT.EKG_ITS ---
APPROVED REPORT Exam: Resting ECG Reason for Exam: Chest pain Patient Location: O HR:75 bpm ECG Measurements Heart Rate 75 AXIS OK 168 P 34 QRSd 74 QRS 33 QT 348 T 57 QTc 389 Conclusion Sinus rhythm...normal P axis, V-rate 50- 99 Normal Electrocardiogram
== END 2024-08-25 15:46 | disposition home or self-care (01) ==
LOC: DI.KIM 15:45
PROVIDERS: PCP Nurse Practitioner Family; Visit Provider Nurse Practitioner Family
DX: R07.9 Chest pain, unspecified (principal)
CPT/HCPCS: 93010

== ENCOUNTER 2024-09-24 02:56 | Outpatient (CLI) | payer MEDICARE, SELFPAY ==
[2024-09-24 09:42] LABS: Hemoglobin A1C 5.2 % (<5.7)
[2024-09-24 09:49] LABS: Calculated LDL 52 mg/dL (<100); Cholesterol 110 mg/dL (<200); HDL Cholesterol 43 mg/dL (>or=50); Triglyceride 78 mg/dL (<150)
== END 2024-09-24 02:57 | disposition home or self-care (01) ==
PROVIDERS: PCP Nurse Practitioner Family; Visit Provider Nurse Practitioner Family
DX: R73.03 Prediabetes (principal); R07.9 Chest pain, unspecified
CPT/HCPCS: 36415; 80061; 83036